=== PATIENT | female | born 1955 | race Caucasian/White ===

== ENCOUNTER 2018-07-07 07:37 | Outpatient (CLI) | payer BC, SELFPAY ==
[2018-07-07 07:47] VITALS: BP 122/58; PULSE 90; RESP 18; TEMP 36.1; O2SAT 96
--- NOTE | 2018-07-07 08:39 | DI.RAD_ITS ---
SYMPTOM/DIAGNOSIS: LUMBAR SPONDYLOSIS C-ARM: Fluoroscopy Time: 34.6 sec 20.77 mGy Fluoroscopy was utilized by Dr. Atkins during lumbar spine injection. Please refer to the procedure report for complete details.
--- NOTE | 2018-07-07 08:48 | PDOC.PAIN ---
Pain Clinic Procedure Note Current Active Problems Problem Status Onset Spondylosis of lumbar region without myelopathy or radiculopathy Acute Lumbar/Sacral Medial Branch Blocks NALINI GARCIA has been referred [facility] the [facility] for lumbar/sacral medial branch blocks. COMMENTS: She was previously evaluated by Ms. Maravilla in our clinic. Remote allergy to Novacaine. Patient was interviewed and the medical record reviewed. There were no medical, pharmacologic, radiographic or other structural contraindications to attempting fluoroscopically guided local anesthetic lumbar/sacral medial branch blocks. Risks and expected side effects as well as potential benefit of the procedure were reviewed and voiced concerns addressed. The printed consent form was signed and witnessed. Standard time-out procedure was performed. Patient was placed in the prone position on the fluoroscopy table and automated blood pressure cuff and pulse oximeter applied. The skin entry points for approaching the anatomic target points of the segmental medial branches of Right L3-L5DR were identified with fluoroscopy and marked. Following thorough Chlorhexadine preparation of the skin and draping and 1% lidocaine infiltration of the skin entry points and subcutaneous tissues, a 25 gauge 3.5 spinal needle was placed under fluoroscopic guidance down on to the target point for each respective segmental medial branch.Position was confirmed in A/P, oblique and lateral views with 0.25ml of omnipaque 240. Then 0.5ml of 0.5% Ropivacaine was injected at each segmental level. The needles were removed without difficulty. Vital signs were stable throughout the procedure and were as recorded in the docflowsheet by the nursing staff. Follow up plans and appointments were discussed and was instructed to keep careful note of how the usual pain was modified by these injections. Specifically was asked to keep a pain diary for the next 24 hours using a numeric pain scale of 0-10 and report these results at the follow-up visit. Post procedure instruction was given as documented in the nursing documentation and having met discharge criteria. Patient was discharged from the [facility]. Based on the medial branches blocked today, if the patient has adequate relief and we are able to proceed to radiofrequency ablation, the treatment should result in the denervation of the right L4-L5 and L5-S1 FACET JOINTS. We would expect to denervate a total of 2 facets during the radiofrequency ablation. COMMENTS:She will call back with her 1-4 hour post procedure pain scores to the right low back. CC: Charlene Barton
[2018-07-07] MEDS: Omnipaque 240 MG/ML 50 ML BTL IJ (08:50)
[2018-07-07 08:51] VITALS: BP 139/85; PULSE 88; RESP 19; O2SAT 95
--- NOTE | 2018-07-07 08:54 | PDOC.PAIN_ITS ---
Pain Clinic Procedure Note Current Active Problems Problem Status Onset Spondylosis of lumbar region without myelopathy or radiculopathy Acute Lumbar/Sacral Medial Branch Blocks NALINI GARCIA has been referred [facility] the [facility] for lumbar/ sacral medial branch blocks. COMMENTS: She was previously evaluated by Ms. Maravilla in our clinic. Remote allergy to Novacaine. Patient was interviewed and the medical record reviewed. There were no medical , pharmacologic, radiographic or other structural contraindications to attempting fluoroscopically guided local anesthetic lumbar/sacral medial branch blocks. Risks and expected side effects as well as potential benefit of the procedure were reviewed and voiced concerns addressed. The printed consent form was signed and witnessed. Standard time-out procedure was performed. Patient was placed in the prone position on the fluoroscopy table and automated blood pressure cuff and pulse oximeter applied. The skin entry points for approaching the anatomic target points of the segmental medial branches of Right L3-L5DR were identified with fluoroscopy and marked. Following thorough Chlorhexadine preparation of the skin and draping and 1% lidocaine infiltration of the skin entry points and subcutaneous tissues, a 25 gauge 3.5 spinal needle was placed under fluoroscopic guidance down on to the target point for each respective segmental medial branch.Position was confirmed in A/P, oblique and lateral views with 0.25ml of omnipaque 240. Then 0.5ml of 0.5% Ropivacaine was injected at each segmental level. The needles were removed without difficulty. Vital signs were stable throughout the procedure and were as recorded in the docflowsheet by the nursing staff. Follow up plans and appointments were discussed and was instructed to keep careful note of how the usual pain was modified by these injections. Specifically was asked to keep a pain diary for the next 24 hours using a numeric pain scale of 0-10 and report these results at the follow-up visit. Post procedure instruction was given as documented in the nursing documentation and having met discharge criteria. Patient was discharged from the [facility]. Based on the medial branches blocked today, if the patient has adequate relief and we are able to proceed to radiofrequency ablation, the treatment should result in the denervation of the right L4-L5 and L5-S1 FACET JOINTS. We would expect to denervate a total of 2 facets during the radiofrequency ablation. COMMENTS:She will call back with her 1-4 hour post procedure pain scores to the right low back. CC: Charlene Barton
== END 2018-07-07 07:57 ==
PROVIDERS: Visit Provider Preventive Medicine Occupational Medicine
DX: M47.816 Spondylosis without myelopathy or radiculopathy, lumbar region (principal)
CPT/HCPCS: 64493; 64494; 72100; Q9967

== ENCOUNTER 2018-08-16 00:40 | Outpatient (CLI) | payer BC, SELFPAY ==
--- NOTE | 2018-08-16 14:31 | DI.RAD_ITS ---
SYMPTOM/DIAGNOSIS: PRE MRI CLEARANCE, H/O WELDING, LOW BACK PAIN, M54.5 ORBITS: Frontal and lateral views were obtained. No radiopaque foreign bodies are seen in the orbits.
--- NOTE | 2018-08-16 15:25 | DI.MRI_ITS ---
SYMPTOMS/DIAGNOSIS: RIGHT-SIDED LOW BACK PAIN FOR YEARS, POSTERIOR RIGHT LEG/ HIP PAIN MRI OF THE LUMBAR SPINE: Routine noncontrast examination was performed. There are no priors for comparison. The conus medullaris has a normal appearance and location. At L5-S1, there is no focal disc herniation or central spinal canal stenosis. There are mild degenerative changes of the facets. There is a small right lateral disc bulge causing mild narrowing of the right neural foramen, but no compression of the exiting nerve root. At L4-L5, there is a diffuse disc bulge. There is disc desiccation. Endplate degenerative signal changes and osteophytes are also present. There are degenerative changes of the facets with mild hypertrophy of the ligamentum flavum. The findings do result in mild narrowing of the central spinal canal. There is mild narrowing of the right neural foramen, but no nerve root compression is seen. There is moderate narrowing of the left neural foramen with mild flattening of the exiting nerve root. At L3-L4, there is disc desiccation. Endplate degenerative changes and osteophytes are seen. There is a diffuse disc bulge. There is a left lateral disc herniation, which causes marked left neural foraminal stenosis compressing the exiting nerve root. There is mild narrowing of the right neural foramen, but no compression of the exiting nerve root is seen. Mild narrowing of the central spinal canal is noted. At L2-L3, there is a diffuse disc bulge and degenerative disc disease. Endplate osteophytes and mild endplate degenerative signal changes are seen. No central spinal canal stenosis is seen. No significant neural foraminal stenosis is present. At L1-L2, there is no focal disc herniation, central spinal canal or neural foraminal stenosis. There are endplate degenerative signal changes and endplate osteophytes noted. There is a fatty rest or hemangioma in the L3 vertebral body. IMPRESSION: 1. Multilevel degenerative changes in the lumbar spine resulting in central spinal canal neural foraminal stenosis. 2. Left lateral disc herniation at L3-L4 causing marked narrowing of the left neural foramen with compression of the exiting nerve root. Please see the above discussion for complete details.
== END 2018-08-16 01:00 ==
PROVIDERS: Visit Provider Nurse Practitioner Family
DX: M54.5 Low back pain (principal); M51.26 Other intervertebral disc displacement, lumbar region; M41.26 Other idiopathic scoliosis, lumbar region; M51.16 Intervertebral disc disorders with radiculopathy, lumbar region
CPT/HCPCS: 70030; 70200; 72148

== ENCOUNTER 2018-08-22 09:11 | Day surgery (SDC) | payer BC, SELFPAY ==
--- NOTE | 2018-08-22 06:29 | W.COLOREPORT ---
Date of service: 08/22/18 Time of Service: 10:08 Colonoscopy Report Date of procedure: 08/22/18 Pre-op diagnosis general: Colon Cancer screening Post-op diagnosis procedure note: other (sigmoid polyp) Procedure: Colonoscopy with polypectomy with cold forceps Surgeon: Starla Xie Anesthesia proc note operative: MAC (Darnell Frey CRNA/ ASA 2) Estimated blood loss (mL): 3 Pathology: other (sigmoid polyp) Complications: None Disposition: same day Indications: Mrs. Jai Mcallister is a pleasant 62-year-old female who was seen in the office to discuss a colonoscopy. Her last colonoscopy was in 2007 and was normal. Risks, benefits and complications were reviewed with her and she wished to proceed. No guarantees were given or implied. Prep: Miralax/Dulcolax Procedure Start Time: 10:08 Procedure End Time: 10:36 Retraction Time: 19 minutes Findings: 1 small pedunculated polyp in the sigmoid colon at 17 cm Procedure Description: After informed consent was obtained the patient was taken to the procedure room and placed in a left decubitous position. Monitors were applied and a time out was done. The patients name, date of , procedure, allergies to medications and metal in their body was reviewed. The patient was then sedated. Once sedated and comfortable a rectal exam was done. External exam was normal. Internal exam revealed a normal sphincter tone and no palpable masses. The scope was then introduced and retroflexed. No internal hemorrhoids were identified. The scope was then advanced to the cecum without difficulty. The TI and appendiceal orifice were identified. The prep was marginal. The scope was then slowly retracted over 19 minutes back into the rectum. A pedunculated polyp was removed at about 17 cm in the sigmoid colon with cold forceps. The scope was removed and the patient was woken up and taken back to Same day surgery in stable condition. The patient tolerated the procedure well and there were no immediate complications. Follow up: The patient should follow up in 3-5 years unless they develop changes in bowel habits or other new gastrointestinal complaints.
--- NOTE | 2018-08-22 06:32 | W.PM.DSUDISC ---
Discharge Plan Disposition Patient Disposition: HOME Condition: Good Discharge Details Reason For Visit: SCREENING Attending Provider: Starla Xie Primary Care Provider: Charlene Barton Home Meds and New Rx's Prescriptions: Continue sertraline 50 mg tablet 50 mg PO DAILY Qty: 90 RF: 3 amitriptyline 10 mg tablet 10 mg PO HS Qty: 90 RF: 3 diclofenac sodium 75 mg tablet,delayed release (DR/EC) 75 mg PO BID PRN (Reason: back pain) 30 Days Qty: 60 RF: 2 multivitamin [One Daily] 1 EACH tablet 1 ea PO DAILY RF: 0 aspirin 325 MG tablet 325 mg PO DAILY RF: 0 acetaminophen [Tylenol Arthritis] 650 MG tablet extended release 650 mg PO DAILY PRNRF: 0 lancets [TellyoTouch Delica Lancets] 1 EACH misc 1 ea Intradermal BID RF: 4 blood sugar diagnostic [TellyoTouch Ultra Test] 1 EACH strip 3 strip Miscellaneous DAILY Qty: 300 RF: 1 metformin [Glucophage] 1,000 MG tablet 1,000 mg PO BID Qty: 180 RF: 4 hydrochlorothiazide 12.5 MG tablet 12.5 mg PO DAILY Qty: 90 RF: 4 pen needle, diabetic [Pen Needle] 1 EACH needle 1 ea Miscellaneous TID Qty: 300 RF: 4 lisinopril 40 MG tablet 1 tab PO DAILY Qty: 90 RF: 4 lorazepam [Ativan] 0.5 MG tablet 0.5 mg PO DAILY PRNQty: 20 RF: 0 hydroxyzine HCl 25 MG tablet 25 mg PO QID PRNQty: 60 RF: 0 insulin lispro [Humalog KwikPen Insulin] 100 UNIT/1 ML insulin pen 12 - 20 u SQ AC Qty: 3 RF: 3 simvastatin 40 MG tablet 40 mg PO DAILY Qty: 90 RF: 4 levothyroxine 75 MCG tablet 75 mcg PO DAILY Qty: 90 RF: 4 gabapentin 600 mg tablet 600 mg PO QID 30 Days Qty: 120 RF: 5 sertraline 100 mg tablet 100 mg PO DAILY Qty: 90 RF: 3 insulin glargine [Lantus Solostar U-100 Insulin] 100 unit/mL (3 mL) insulin pen 60 unit subcut DAILY Qty: 9 RF: 6 methylphenidate HCl 36 mg tablet extended release 24hr 36 mg PO DAILY RF: 0 cannabidiol (CBD) extract 100 mg/mL Solution 1 drp RF: 0 Discontinued polyethylene glycol 3350 17 gram powder in packet 255 g PO DAILY Qty: 15 RF: 0 bisacodyl [Dulcolax (bisacodyl)] 5 mg tablet,delayed release (DR/EC) 5 mg PO ONCE Qty: 4 RF: 0 Discharge Instructions Instructions: Colonoscopy (DC), Colorectal Polyps (DC) Additional Instructions: Findings: 1. One polyp Follow up: 3-5 years Please call if you develop: fevers >101.5 Nausea or Vomiting Abdominal pain that is not transient 1. Because there will be medication in your system for the next 24 hours, you may feel a little sleepy. Your coordination will be affected. Therefore: a. Do not drive or operate dangerous equipment for 24 hours. b. Do not drink alcohol beverages for 24 hours (not even beer). c. Plan to go home and rest for the day. 2. Generally there are no restrictions on your activity after a day or so has gone by, but you may feel a bit fatigued for a few days. 3 After you arrive home you may have a light meal and return to a normal diet as you can tolerate it without feeling sick to your stomach. 4. After surgery, you may feel pain or discomfort. This should be only transient, but if it persists please contact your doctor. 5. If there are any questions regarding the findings of your procedure, please feel free to contact your doctor. 6. If you are unable to contact your doctor with a problem, contact the hospital at [phone]. 7. Continue all your regular medications unless directed otherwise. I understand the above instructions and have no questions. Signature of Patient or Responsible Adult Escort Date/Time Name of Responsible Adult Escort Signature of Nurse Date/Time Activity:: Activity as Tolerated Diet:: As Tolerated Discharge Orders Discharge Orders: Discharge Order (Routine); Ordered 08/22/18 Ordered By: Starla Xie DS: Diagnosis Discharge Diagnosis (1) S/P colonoscopy: Status: Acute (2) Colorectal polyp detected on colonoscopy: Status: Acute
[2018-08-22 09:32] VITALS: BP 129/68; PULSE 89; RESP 18; TEMP 36.6; O2SAT 95
[2018-08-22] MEDS: Lactated Ringers 1,000 ML 80 ML IV (09:49)
--- NOTE | 2018-08-22 10:35 | BOWEL_PTH ---
PATIENT: Rajani Mendes LOC: [facility] U#:[id number] AGE/SX: 62/F ROOM: RE08/22/[address]: Starla Xie MD : [id number] BED: DIS: 08/22/2018 SPEC #: [id number] RECD: 08/22/18 12:59 STATUS: SATISH REQ #: [id number] ZAC: 08/22/18 10:[address]: Starla Xie DEPT: Surgical Specimen RECD BY: Haydee Majano ENTERED: 08/22/18 12:59 SP TYPE: Bowel OTHR DR: Charlene Barton APRN Tissues: 1 - BIOPSY BOWEL Procedures: GROSS AND MICRO LEVEL 4 IMMUNOPEROXIDASE STAIN Comments: [id number]
[2018-08-22 11:18] VITALS: BP 132/69; PULSE 72; RESP 18; TEMP 36.5; O2SAT 97
== END 2018-08-22 11:35 | disposition home or self-care (01) ==
LOC: SUR 09:13
PROVIDERS: Visit Provider Surgery
PROC: 0DJD8ZZ Inspection of Lower Intestinal Tract, Via Natural or Artificial Opening Endoscopic (ICD-10-PCS; CPT 45378; principal; 2018-08-22 10:45)
DX: Z12.11 Encounter for screening for malignant neoplasm of colon (principal); K63.5 Polyp of colon; E11.9 Type 2 diabetes mellitus without complications; Z79.4 Long term (current) use of insulin; I10 Essential (primary) hypertension
CPT/HCPCS: 45380; 88305; 88361

== ENCOUNTER 2018-11-11 07:50 | Outpatient (CLI) | payer BC, SELFPAY ==
--- NOTE | 2018-11-11 10:36 | HPE_ITS ---
Date of service: 11/11/18 Time of Service: 09:00 Assessment and Plan (1) Left carpal tunnel syndrome: Current visit: Yes Status: Acute Chronic carpal tunnel syndrome not being successfully controlled with cons ervative bracing at this time with daytime symptoms with object dropping. The anatomy, operative procedure are reviewed with Roro. all questions are answered. Endoscopic carpal tunnel release will be performed on 11/16/2018 anatomy permitting.Roro will receive penicillin as a preop antibiotic as her adverse reaction 30 years ago was this rash with joint swelling and I do not think that precludes the use of Ancef since there is such a low crossover reactivity even if her symptoms previously were an allergic reaction verses an adverse reaction. With respect to her Novocain sensitivity, I wonder if the intense itchy rash was a result of topical sensitivity to the antiseptic agent. To help prove that fact it would be interesting to do a small patch test on another extremity and see if she develops intense overlying that small patch of antiseptic agent. 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 She does a lot of typing with her work activities and this exacerbates the numbness. She feels her hand is numb 90% of the time with some involvement of her index finger mostly sparing her ring and little. She is status post a successful right E CTR done in so is well aware of carpal tunnel syndrome symptoms in hopes for similar excellent results. Pertinent Surgical Information Denies previous medical history of: stroke, TIA, NV, use of sublingual nitroglycerin, GERD, seizures, , sleep apnea, , hepatitis, hematologic disorders Denies previous complications from surgery or anesthesic agents with respect to high fever, prolonged vomiting and difficulty waking up Review of Systems Review of Systems All systems reviewed & are unremarkable except as noted in HPI and below Constitutional Denies fever(s) and Denies headache(s) ENT Denies headache(s), Denies nasal congestion, Denies nasal discharge and Denies sore throat Cardiovascular Denies chest pain, Denies chest pain with activity, Denies palpitations, Denies dyspnea on exertion, Denies orthopnea and Denies paroxysmal nocturnal dyspnea Respiratory Denies cough, Denies excessive phlegm production, Denies pain on inspiration, Denies dyspnea on exertion and Denies wheezing Gastrointestinal Denies abdominal pain, Denies melena, Denies hematochezia, Denies nausea and Denies vomiting Genitourinary Denies hematuria, Denies urinary frequency and Denies dysuria Comments: Denies burning sensation with urination Musculoskeletal Reports as per HPI Neurologic Denies headache(s) Psychiatric Denies anxiety and Denies depression Endocrine Denies palpitations Comments: Denies any unplanned weight changes Allergic/Immunologic Denies wheezing PFSH Medical History Left carpal tunnel syndrome (Acute) Colorectal polyp detected on colonoscopy (Acute ~08/22/18) Increased BMI (Chronic) Hypothyroidism (Chronic) Headache (Acute 09/13/12) Urinary, incontinence, stress female (Chronic 03/30/13) Fatty liver (Chronic 03/30/13) Essential hypertension (Acute 06/28/13) Diabetes mellitus (Chronic 09/13/12) Depression (Chronic 07/29/17) Chronic bilateral low back pain without sciatica (Chronic 05/31/17) Attention deficit hyperactivity disorder (Chronic) Anxiety (Chronic 03/30/13) Acute low back pain (Acute 07/24/17) Spondylosis of lumbar region without myelopathy or radiculopathy (Acute) Anxiety (Chronic) Depression (Chronic) Diabetes mellitus (Chronic) Essential hypertension (Chronic) Hypothyroidism (Chronic) Urinary, incontinence, stress female (Chronic) Fatty liver (Inactive) ADHD Acute low back pain Chronic bilateral low back pain without sciatica Headache Hyperlipidemia Surgical History S/P colonoscopy (Acute ~08/22/18) Appendectomy (Resolved) BONE SPUR (Resolved ~01/2014) Open Carpal Tunnel release (Resolved 05/27/16) Cholecystectomy (Inactive) Social History household members: spouse housing: house number of children: 3 current occupational status: employed 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 current occupational exposures/hazards: No Smoking and Tabacco status: Former Tobacco Use how long ago did patient quit smokin-40 yrs ago alcohol intake: current alcohol intake frequency: holidays/special occasions only details: episodic beer socially substance use type: does not use What is your relationship status?: Panel score (0-1 are the most socially isolated patients): 1 Meds Home Medications Medication Instructions Recorded Confirmed Type aspirin 325 mg PO DAILY tab 12/21/12 11/11/18 History lancets [OneTouch Delica Lancets] 12/21/12 11/03/18 History multivitamin [One Daily] 1 ea PO DAILY 12/21/12 11/11/18 History OneTouch Ultra Test #300 strip 07/31/16 11/03/18 History hydrochlorothiazide 12.5 mg PO DAILY #90 tab-cap 09/17/17 11/11/18 Rx lisinopril 1 tab PO DAILY #90 tab-cap 11/08/17 11/11/18 Rx Humalog KwikPen Insulin 12 - 20 u SQ AC #3 box 02/04/18 11/11/18 Rx levothyroxine 75 mcg PO DAILY #90 tab-cap 03/07/18 11/11/18 Rx simvastatin 40 mg PO DAILY #90 tab-cap 03/07/18 11/11/18 Rx sertraline 100 mg tablet 100 mg PO DAILY #90 tab-cap 07/04/18 11/11/18 Rx amitriptyline 10 mg tablet 10 mg PO HS #90 tab-cap 07/27/18 11/11/18 Rx sertraline 50 mg tablet 50 mg PO DAILY #90 tab 07/27/18 11/03/18 Rx insulin glargine (U-100) 100 60 unit SUBCUT DAILY #9 pen 08/10/18 11/11/18 Rx unit/mL (3 mL) subcutaneous pen cannabidiol (CBD) extract 1 drp PO PRN PRN 08/22/18 11/11/18 History metformin 1,000 mg tablet 1,000 mg PO BID #180 tab 09/14/18 11/11/18 Rx gabapentin 600 mg tablet 600 mg PO QID tab 10/18/18 11/11/18 History methylphenidate ER 36 mg 36 mg PO DAILY #30 tab MDD 36mg 10/18/18 11/11/18 Rx tablet,extended release 24 hr pen needle, diabetic 31 gauge x #300 box 11/09/18 Rx 5/16 diclofenac sodium 75 mg PO BID 11/11/18 11/11/18 History Allergies Allergy/AdvReac Type Severity Reaction Status Date / Time Penicillins Allergy RASH; Verified 11/11/18 10:57 JOINT SWELLING Sulfa (Sulfonamide Allergy JOINT Verified 11/11/18 08:15 Antibiotics) SWELLING; RASH procaine [From Novocain] AdvReac Severe ? Verified 11/11/18 10:57 manifestation of topical antiseptic exposure citalopram AdvReac Mild total Verified 11/11/18 08:15 meltdown Exam Const General: cooperative HENMT Throat: posterior oropharynx normal Eyes General: appearance normal, both eyes and all related structures Conjunctivae: conjunctivae normal Sclera: sclerae normal Neck Neck: no JVD Carotids: normal carotid upstroke and no bruits Resp Effort & Inspection: normal respiratory effort and able to speak in complete sentences Auscultation: clear to auscultation bilaterally, no rales, no rhonchi and no wheezes Cardio Rate: regular rate Heart Sounds: S1 normal, S2 normal and no murmurs Bruits: no abdominal aortic bruits Pulses: normal peripheral pulses Other: No pulsatile mass noted with palpation over the abdominal aorta.no organomegly or tenderness.no cva tenderness GI Palpation: soft and no hepatosplenomegaly Auscultation: normal bowel sounds General: No CVA tenderness Extrem General: no pedal edema Other: no thenar atrophy.+ rapid tinels, median nerve compression and phalens testing
== END 2018-11-11 08:10 ==
PROVIDERS: Visit Provider Orthopaedic Surgery
DX: G56.02 Carpal tunnel syndrome, left upper limb (principal); Z01.818 Encounter for other preprocedural examination

== ENCOUNTER 2018-11-16 11:27 | Day surgery (SDC) | payer BC, SELFPAY ==
[2018-11-16 11:30] VITALS: BP 124/65; PULSE 91; RESP 16; TEMP 37; O2SAT 96
[2018-11-16] MEDS: Lactated Ringers 1,000 ML 80 ML IV (12:05)
--- NOTE | 2018-11-16 13:36 | W.PM.DSUDISC ---
Discharge Plan Disposition Patient Disposition: HOME Condition: Good Discharge Details Reason For Visit: L ECTR Attending Provider: Chauncye Núñez Primary Care Provider: Charlene Barton Home Meds and New Rx's Prescriptions: New hydrocodone-acetaminophen 5-325 mg tablet 1 tab PO Q6H PRN (Reason: pain) Qty: 7 RF: 0 Continued sertraline 50 mg tablet 50 mg PO DAILY Qty: 90 RF: 3 amitriptyline 10 mg tablet 10 mg PO HS Qty: 90 RF: 3 methylphenidate HCl 36 mg tablet extended release 24hr 36 mg PO DAILY MDD 36mg Qty: 30 RF: 0 multivitamin [One Daily] 1 EACH tablet 1 ea PO DAILY RF: 0 aspirin 325 MG tablet 325 mg PO DAILY RF: 0 lancets [OneTouch Delica Lancets] 1 EACH misc 1 ea Intradermal BID RF: 4 OneTouch Ultra Test 1 EACH strip 3 strip Miscellaneous DAILY Qty: 300 RF: 1 hydrochlorothiazide 12.5 MG tablet 12.5 mg PO DAILY Qty: 90 RF: 4 lisinopril 40 MG tablet 1 tab PO DAILY Qty: 90 RF: 4 Humalog KwikPen Insulin 100 UNIT/1 ML insulin pen 12 - 20 u SQ AC Qty: 3 RF: 3 simvastatin 40 MG tablet 40 mg PO DAILY Qty: 90 RF: 4 levothyroxine 75 MCG tablet 75 mcg PO DAILY Qty: 90 RF: 4 sertraline 100 mg tablet 100 mg PO DAILY Qty: 90 RF: 3 Lantus Solostar U-100 Insulin 100 unit/mL (3 mL) insulin pen 60 unit subcut DAILY Qty: 9 RF: 6 metformin [Glucophage] 1,000 mg tablet 1,000 mg PO BID Qty: 180 RF: 4 pen needle, diabetic [Pen Needle] 31 gauge x 5/16 needle 1 ea Miscellaneous TID Qty: 300 RF: 4 diclofenac sodium 75 mg tablet,delayed release (DR/EC) 75 mg PO BID PRN (Reason: pain) 30 Days Qty: 60 RF: 5 gabapentin 600 mg tablet 600 mg PO QID 30 Days Qty: 120 RF: 5 cannabidiol (CBD) extract 100 mg/mL Solution 1 drp PO PRN PRNRF: 0 Discharge Instructions Additional Instructions: Elevate L hand above heart level as much as possible overnite tonite. Wiggle fingers L hand 10 times/hour when awake to prevent swelling and decrease pain. Keep dressings and splint dry and intact for 48 hours. After 48 hours, remove splint and dressings and begin to move L wrist. May shower or bathe and get incision wet after you remove dressings in 48 hours. Leave incision uncovered when it is dry and sealed. Use L hand as much as discomfort allows. Follow up with in 7-10 days. Referrals: Chauncey Núñez MD [ [facility] STAFF PHYSICIAN] - (f/u in 7-10 days.) Equipment/Supplies: Splint Activity:: Activity as Tolerated Remove Dressings/Wound Care:: 48 hours Shower/Bathe:: 48 hours Diet:: As Tolerated Discharge Orders Discharge Orders: Discharge Order (Routine); Ordered 11/16/18 Ordered By: Chauncey Núñez DS: Diagnosis Discharge Diagnosis (1) Left carpal tunnel syndrome: Status: Acute
[2018-11-16 13:39] VITALS: BP 158/65; PULSE 88; RESP 14; TEMP 36.3; O2SAT 95
[2018-11-16 13:44] VITALS: BP 150/54; PULSE 88; RESP 14; TEMP 36.3; O2SAT 95
[2018-11-16 13:49] VITALS: BP 151/50; PULSE 89; RESP 14; TEMP 36.3; O2SAT 96
[2018-11-16 14:04] VITALS: BP 151/52; PULSE 88; RESP 13; TEMP 36.3; O2SAT 97
[2018-11-16 14:45] VITALS: BP 137/71; PULSE 90; RESP 14; TEMP 36.1; O2SAT 95
--- NOTE | 2018-11-16 16:51 | ROE_ITS ---
DATE OF PROCEDURE: November 16, 2018 PREOPERATIVE DIAGNOSIS: Carpal tunnel syndrome, left. POSTOPERATIVE DIAGNOSIS: Carpal tunnel syndrome, left. PROCEDURE: Endoscopic carpal tunnel release, left. SURGEON: Chauncey Núñez M.D. ANESTHESIA: General, Juwan Alas CRNA INDICATIONS: This is a 63-year-old white female with longstanding bilateral carpal tunnel syndrome. She has had an endoscopic carpal tunnel release on the right a couple of years ago with excellent re lief of symptoms. Her left carpal tunnel has gotten worse over the last several months. She has dif ficulty sleeping and it is quite painful. Endoscopic carpal tunnel release was recommended to allevi ate her symptoms. The risks and complications of the procedure were explained to the patient in deta il preoperatively. PROCEDURE: The patient was taken to the Operating Room on 11/16/18. She was placed supine on the tab le and a general anesthetic was administered. A proximal tourniquet was applied to the left upper ar m and the left hand, wrist, and forearm were prepped and draped free in the usual sterile fashion. T he arm was exsanguinated by elevation for two minutes and then the tourniquet was inflated to 325 mmH g. A transverse incision was made in line with the proximal flexion crease of her left wrist, beginning at the flexor carpi radialis tendon and extending to the flexor carpi ulnaris tendon. The incision w as carried to the fascia and subcutaneous veins were cauterized. A distally-based fascial flap was t hen created to gain access to the carpal canal. Room for the endoscope was made with the synovial re flector followed by a series of obturators in the carpal canal. Because the carpal canal was quite t ight I had to use the synovial reflector and the obturators several times before I had enough room to place the endoscope in the carpal canal. The endoscope was then placed in the carpal canal and was advanced until I could clearly visualize th e distal edge of the volar carpal ligament. At this point the trigger was depressed, elevating the b lade and the blade was then drawn out from the distal edge of the volar carpal ligament, out through the incision, transecting the volar carpal ligament. The blade was depressed. The endoscope was alfredo edis back in the canal and I was able to visualize the median nerve falling into the defect that was c reated by transecting the volar carpal ligament. The wound was infiltrated with 0.5% Marcaine with epinephrine solution and a median nerve block was p erformed with 0.5% Marcaine with epinephrine solution. The tourniquet was released and hemostasis wa s obtained with electrocautery and simple direct pressure. The skin edges were approximated with two horizontal mattress sutures of #4-0 nylon suture material. The wound was dressed with Xeroform gauz e, sterile gauze 4x4s, wrapped with a Kerlix bandage, and then wrapped with a 3-inch Natanael bandage. Th e patient's left wrist was placed in a commercial cock-up wrist splint. The patient's general anesthesia was reversed without complication. She was discharged to the [facility] Room in good condition. The patient was discharged home from the Day Surgery Unit when fully recovered from her general anest hesia. She was given instructions to elevate her left hand above heart level as much as possible ove cooper tonight. She is encouraged to wiggle her fingers 10 times an hour when awake to prevent swell ing and pain. She is given a prescription for pain of hydrocodone/APAP 5 mg/325 mg, 1 tablet every 6 hours as needed for pain not relieved by Tylenol or ibuprofen. She is to keep her dressings and spl int intact and dry for 48 hours. After 48 hours she will remove her splint and dressings and start t o move her left wrist. She may then shower or bathe and get her incision wet. She can leave the inc ision uncovered when it is dry and sealed. She should follow up in Dr. Núñez's office in 7 to 10 da ys.
== END 2018-11-16 15:31 | disposition home or self-care (01) ==
PROVIDERS: Visit Provider Orthopaedic Surgery
PROC: 01N54ZZ Release Median Nerve, Percutaneous Endoscopic Approach (ICD-10-PCS; CPT 29848; principal; 2018-11-16 13:00)
DX: G56.02 Carpal tunnel syndrome, left upper limb (principal)
CPT/HCPCS: 29848; J0690; J1100; J1885; J2405; J3010; L3908

== ENCOUNTER 2019-02-08 06:49 | Outpatient (CLI) | payer BC, SELFPAY ==
[2019-02-08 09:53] LABS: Hemoglobin A1C 6.8 % (4.5-6.2)
[2019-02-08 10:56] LABS: TSH (W/Ref FT4) 3.73 uIU/mL (0.358-3.74)
== END 2019-02-08 07:09 ==
DX: E03.9 Hypothyroidism, unspecified (principal); E11.610 Type 2 diabetes mellitus with diabetic neuropathic arthropathy; G47.00 Insomnia, unspecified; R63.8 Other symptoms and signs concerning food and fluid intake; Z79.4 Long term (current) use of insulin
CPT/HCPCS: 36415; 83036; 84443

== ENCOUNTER 2019-06-22 09:14 | Outpatient (CLI) | payer BC, SELFPAY ==
[2019-06-22 10:46] LABS: Ferritin 45 ng/mL (8-388)
== END 2019-06-22 09:34 ==
PROVIDERS: Visit Provider Nurse Practitioner
DX: M25.50 Pain in unspecified joint (principal)
CPT/HCPCS: 36415; 82728

== ENCOUNTER 2019-07-25 01:26 | Outpatient (CLI) | payer BC, SELFPAY ==
--- NOTE | 2019-07-25 08:00 | DI.MAMMO_ITS ---
EXAM: MG MAMMO SCREENING CLINICAL HISTORY: SCREENING, Z12.31 TECHNIQUE: Mammograms were interpreted according to the usual protocol including computer analysis w [employer] CAD system, tomosynthesis and C-view imaging. COMPARISON: [id number] FINDINGS: The breasts are composed of fatty density tissue, breast density category A. There are no suspicious masses or suspicious microcalcifications. There has been no significant change when compared with pr ior images. IMPRESSION: Category 1, negative mammogram. Routine yearly screening is recommended. BI-RADS Cat 1 - Negative Breast Density - Category A - Almost entirely fatty
== END 2019-07-25 01:46 ==
DX: Z12.31 Encounter for screening mammogram for malignant neoplasm of breast (principal)
CPT/HCPCS: 77063; 77067

== ENCOUNTER 2019-10-19 13:23 | Outpatient (CLI) | payer BC, SELFPAY ==
[2019-10-19 14:14] LABS: Hemoglobin A1C 6.7 % (3.8-5.6)
[2019-10-19 15:09] LABS: Calculated LDL 115 mg/dL; Cholesterol 202 mg/dL (<200); Ferritin 57 ng/mL (8-252); HDL Cholesterol 50 mg/dL (40-60); Triglyceride 186 mg/dL (<150)
== END 2019-10-19 13:43 ==
PROVIDERS: Visit Provider Nurse Practitioner
DX: E11.9 Type 2 diabetes mellitus without complications (principal); E61.1 Iron deficiency; E78.5 Hyperlipidemia, unspecified
CPT/HCPCS: 36415; 80061; 82728; 83036

== ENCOUNTER 2020-05-07 01:28 | Outpatient (CLI) | payer BC, SELFPAY ==
[2020-05-07 08:07] LABS: Hemoglobin A1C 6.3 % (3.8-5.6)
[2020-05-07 09:06] LABS: ALT 36 U/L (14-59); AST 27 U/L (15-37); Albumin 3.8 g/dL (3.4-5.0); Alkaline Phosphatase 49 U/L (46-116); BUN 20 mg/dL (7-18); Bilirubin, Total 0.3 mg/dL (0.2-1.0); Calcium 8.9 mg/dL (8.5-10.1); Calculated LDL 120 mg/dL (<100); Chloride 104 mmol/L (98-107); Cholesterol 221 mg/dL (<200); Glucose 147 mg/dL (74-106); HDL Cholesterol 53 mg/dL (40-60); Sodium 140 mmol/L (136-145); TSH (W/Ref FT4) 6.67 uIU/mL (0.36-3.74); Total Protein 6.6 g/dL (6.4-8.2); Triglyceride 244 mg/dL (<150)
== END 2020-05-07 01:48 ==
DX: E03.9 Hypothyroidism, unspecified (principal); E11.618 Type 2 diabetes mellitus with other diabetic arthropathy; E78.5 Hyperlipidemia, unspecified; F33.1 Major depressive disorder, recurrent, moderate; G47.00 Insomnia, unspecified; I10 Essential (primary) hypertension; R63.8 Other symptoms and signs concerning food and fluid intake
CPT/HCPCS: 36415; 80053; 80061; 83036; 84439; 84443

== ENCOUNTER 2020-07-30 01:16 | Outpatient (CLI) | payer BC, SELFPAY ==
--- NOTE | 2020-07-30 08:43 | DI.MAMMO_ITS ---
EXAM: MAMMO SCREENING CLINICAL HISTORY: screening,Z12.39 TECHNIQUE: Mammograms were interpreted according to the usual protocol including computer analysis w [employer] CAD system, tomosynthesis and C-view imaging. COMPARISON: FINDINGS: The breasts are of moderate density with fairly symmetrical distribution of fibroglandular tissue. N o dominant mass or clumped microcalcification is identified in either breast. The current examinatio n is compared with previous examinations including July 2019 and there has been no gross interval change in appearance in comparison with the prior studies. IMPRESSION: No specific evidence of malignancy at this time. Routine screening examinations are suggested at ye millicent intervals in this age group according to the ACS ACR guidelines. BI-RADS Category 1 - Negative Breast Density - Category B - Scattered areas of fibroglandular density
== END 2020-07-30 01:36 ==
DX: Z12.31 Encounter for screening mammogram for malignant neoplasm of breast (principal)
CPT/HCPCS: 77063; 77067

== ENCOUNTER 2020-07-30 02:30 | Outpatient (CLI) | payer BC, SELFPAY ==
[2020-07-30 09:29] LABS: TSH (W/Ref FT4) 5.37 uIU/mL (0.36-3.74)
[2020-07-30 09:32] LABS: Ferritin 98 ng/mL (8-252)
== END 2020-07-30 02:50 ==
PROVIDERS: Visit Provider Nurse Practitioner
DX: E03.9 Hypothyroidism, unspecified (principal); G47.00 Insomnia, unspecified
CPT/HCPCS: 36415; 82728; 84439; 84443

== ENCOUNTER 2021-02-25 16:09 | Outpatient (REF) | payer BC, SELFPAY ==
[2021-03-01 03:23] LABS: 2-Hydroxy Ethyl Flurazepam Not Detected ng/mL (Cutoff: 10); 3,4-methylenedioxyamphetamine Not Detected ng/mL (Cutoff: 100); 3,4-methylenedioxyethylampheta Not Detected ng/mL (Cutoff: 100); 3,4-methylenedioxymethamphetam Not Detected ng/mL (Cutoff: 100); 6-monoacetylmorphine Not Detected ng/mL (Cutoff: 25); Alpha-Hydroxy Midazolam Not Detected ng/mL (Cutoff: 10); Alpha-Hydroxy Triazolam Not Detected ng/mL (Cutoff: 10); Alpha-Hydroxyalprazolam Not Detected ng/mL (Cutoff: 10); Alpha-OH-alprazolam Glucuronid Not Detected ng/mL (Cutoff: 50); Alprazolam Not Detected ng/mL (Cutoff: 10); Amphetamine Not Detected ng/mL (Cutoff: 100); Barbiturates Negative ng/mL (Cutoff: 200); Buprenorphine Not Detected ng/mL (Cutoff: 5); Chlordiazepoxide Not Detected ng/mL (Cutoff: 10); Clobazam Not Detected ng/mL (Cutoff: 10); Clonazepam Not Detected ng/mL (Cutoff: 10); Cocaine Negative ng/mL (Cutoff: 150); Codeine Not Detected ng/mL (Cutoff: 25); Comment Normal; Creatinine, U 191.9 mg/dL; Diazepam Not Detected ng/mL (Cutoff: 10); Dihydrocodeine Not Detected ng/mL (Cutoff: 25); EDDP Not Detected ng/mL (Cutoff: 25); Ephedrine Not Detected ng/mL (Cutoff: 100); Fentanyl Not Detected ng/mL (Cutoff: 2); Flurazepam Not Detected ng/mL (Cutoff: 10); Hydrocodone Not Detected ng/mL (Cutoff: 25); Hydromorphone Not Detected ng/mL (Cutoff: 25); Hydromorphone-3-beta-glucuroni Not Detected ng/mL (Cutoff: 100); Lorazepam Not Detected ng/mL (Cutoff: 10); Lorazepam Glucuronide Not Detected ng/mL (Cutoff: 50); Meperidine Not Detected ng/mL (Cutoff: 25); Methadone Not Detected ng/mL (Cutoff: 25); Methamphetamine Not Detected ng/mL (Cutoff: 100); Methylphenidate Not Detected ng/mL (Cutoff: 20); Midazolam Not Detected ng/mL (Cutoff: 10); Morphine Not Detected ng/mL (Cutoff: 25); N-Desmethylclobazam Not Detected ng/mL (Cutoff: 200); N-desmethyltapentadol Not Detected ng/mL (Cutoff: 50); Naloxone Not Detected ng/mL (Cutoff: 25); Norbuprenorphine Not Detected ng/mL (Cutoff: 5); Norfentanyl Not Detected ng/mL (Cutoff: 2); Norhydrocodone Not Detected ng/mL (Cutoff: 25); Normeperidine Not Detected ng/mL (Cutoff: 25); Noroxycodone Not Detected ng/mL (Cutoff: 25); Noroxymorphone Not Detected ng/mL (Cutoff: 25); O-desmethyltramadol Not Detected ng/mL (Cutoff: 25); Oxazepam Glucuronide Not Detected ng/mL (Cutoff: 50); Phencyclidine (PCP) Not Detected ng/mL (Cutoff: 20); Phentermine Not Detected ng/mL (Cutoff: 100); Prazepam Not Detected ng/mL (Cutoff: 10); Propoxyphene Not Detected ng/mL (Cutoff: 25); Pseudoephedrine Not Detected ng/mL (Cutoff: 100); Ritalinic Acid Not Detected ng/mL (Cutoff: 100); Specific Gravity 1.027; Tapentadol Not Detected ng/mL (Cutoff: 25); Temazepam Not Detected ng/mL (Cutoff: 10); Temazepam Glucuronide Not Detected ng/mL (Cutoff: 50); Tetrahydrocannabinol Presumptive Positive ng/mL (Cutoff: 50); Tramadol Not Detected ng/mL (Cutoff: 25); Triazolam Not Detected ng/mL (Cutoff: 10); Zolpidem Phenyl-4-Carboxy acid Not Detected ng/mL (Cutoff: 10); pH 5.3
[2021-03-04 08:46] LABS: Carboxy-THC Interpretation Positive.; Delta-9 CarboxyThc by LC-MS/MS 244 ng/mL (Cutoff:<3)
== END 2021-02-25 16:10 | disposition home or self-care (01) ==
LOC: LBN 16:09
PROVIDERS: Visit Provider Nurse Practitioner Family
DX: M54.5 Low back pain (principal); M25.561 Pain in right knee; Z79.899 Other long term (current) drug therapy
CPT/HCPCS: 80307; 80347; 80349; 80364

== ENCOUNTER 2021-05-20 12:03 | Outpatient (REF) | payer BC, SELFPAY ==
--- NOTE | 2021-05-20 10:00 | PAPFT_PTH ---
PATIENT: Rajani Mendes LOC: [facility] [place]#:[id number] AGE/SX: 65/F ROOM: RE05/20/[address]: Charlene Barton APRN : 1955 BED: DIS: 05/20/2021 SPEC #: [id number] RECD: 05/20/21 12:51 STATUS: SATISH REQ #: [id number] ZAC: 05/20/21 10:[address]: Charlene Barton DEPT: [facility] Cytology RECD BY: Haydee Majano Tissues: 1 - CX/ENDOCX FOR PAP SMEARS Procedures: PAP THIN PREP/UVM Screening HPV DNA PROBE Comments: [id number]
== END 2021-05-20 12:04 | disposition home or self-care (01) ==
LOC: LBN 12:03
DX: Z12.4 Encounter for screening for malignant neoplasm of cervix (principal); Z11.51 Encounter for screening for human papillomavirus (HPV)
CPT/HCPCS: 88142; 87624

== ENCOUNTER 2021-08-05 01:23 | Outpatient (CLI) | payer BC, SELFPAY ==
--- NOTE | 2021-08-05 07:30 | DI.MAMMO_ITS ---
Exam(s) MAMMO SCREENING EXAM: MAMMO SCREENING CLINICAL HISTORY: screening,Z12.39 TECHNIQUE: Mammograms were interpreted according to the usual protocol including computer analysis w [employer] CAD system, tomosynthesis and C-view imaging. COMPARISON: FINDINGS: The breasts are of moderate density with fairly symmetrical distribution of fibroglandular tissue. N o dominant mass or clumped microcalcification is identified in either breast. The current examinatio n is compared with previous examinations including July 2020 and there has been no gross interval change in appearance in comparison with the prior studies. IMPRESSION: No specific evidence of malignancy at this time. Routine screening examinations are suggested at yea rly intervals in this age group according to the ACS ACR guidelines. BI-RADS Category 1 - Negative Breast Density - Category B - Scattered areas of fibroglandular density
== END 2021-08-05 01:43 ==
DX: Z12.31 Encounter for screening mammogram for malignant neoplasm of breast (principal)
CPT/HCPCS: 77063; 77067

== ENCOUNTER 2021-08-05 13:55 | Outpatient (CLI) | payer BC, SELFPAY ==
[2021-08-05 14:39] LABS: ALT 46 U/L (14-59); AST 29 U/L (15-37); Alkaline Phosphatase 52 U/L (46-116); Anion Gap 11.9 mmol/L (3-11); BUN 21 mg/dL (7-18); Bilirubin, Total 0.4 mg/dL (0.2-1.0); CO2 26.1 mmol/L (21.0-32.0); CREATININE 0.9 mg/dL (0.55-1.02); Calcium 9.2 mg/dL (8.5-10.1); Calculated LDL 106 mg/dL (<100); Chloride 105 mmol/L (98-107); Cholesterol 202 mg/dL (<200); Ferritin 63 ng/mL (8-252); Glucose 119 mg/dL (74-106); HDL Cholesterol 62 mg/dL (40-60); Potassium 4.4 mmol/L (3.5-5.1); Sodium 143 mmol/L (136-145); TSH (W/Ref FT4) 5.26 uIU/mL (0.36-3.74); Total Protein 6.9 g/dL (6.4-8.2); Triglyceride 174 mg/dL (<150)
[2021-08-05 14:58] LABS: FREE T4 0.89 ng/dL (0.76-1.46)
== END 2021-08-05 13:56 | disposition home or self-care (01) ==
LOC: LBO 13:58
DX: E03.9 Hypothyroidism, unspecified; I10 Essential (primary) hypertension; G47.00 Insomnia, unspecified; E78.5 Hyperlipidemia, unspecified; R53.83 Other fatigue; K76.0 Fatty (change of) liver, not elsewhere classified; E11.69 Type 2 diabetes mellitus with other specified complication
CPT/HCPCS: 36415; 80053; 80061; 81003; 82043; 82570; 82728; 84439; 84443

== ENCOUNTER 2022-06-10 16:00 | Outpatient (REF) | payer MEDICARE, BC, SELFPAY ==
[2022-06-10 22:29] LABS: HCT 42.9 % (36.0-46.0); HGB 13.8 g/dL (11.2-15.7); MCH 28.3 pg (27.0-33.0); MCHC 32.2 % (32.0-36.0); MCV 88 fL (80-95); MPV 10.1 fL (8.0-11.0); Platelet Count 286 10^3/uL (130-400); RBC 4.88 10^6/uL (3.93-5.22); RDW 13.6 % (11.7-14.6); WBC 8.32 10^3/uL (4.4-10.8)
[2022-06-10 22:52] LABS: Ferritin 105 ng/mL (8-252); TSH (W/Ref FT4) 3.09 uIU/mL (0.36-3.74)
== END 2022-06-10 16:01 | disposition home or self-care (01) ==
LOC: NCHCN 16:00
PROVIDERS: Visit Provider Nurse Practitioner Family
DX: E03.9 Hypothyroidism, unspecified (principal); R53.83 Other fatigue; E11.9 Type 2 diabetes mellitus without complications
CPT/HCPCS: 85027; 82728; 84443

== ENCOUNTER → 2022-06-11 02:03 | Outpatient (CLI) | payer MEDICARE, BC, SELFPAY ==
--- NOTE | 2022-06-11 08:15 | DI.US_ITS ---
Exam(s) US RENAL EXAM: US RENAL CLINICAL HISTORY: feeling of incomplete empyting, pre-postvoid residual,family h/o bladder ca. TECHNIQUE: Brown scale, color and spectral Doppler were used. COMPARISON: No exams were available for comparison FINDINGS: Renal size in cm: Right: 11.2. Left: 12.6. Echogenicity: Normal. Hydronephrosis: No. Cyst or mass: No. Nephrolithiasis: No. Other findings: None. Bladder:Normal. Ureteral jets: Right: Not visualized on this examination. Left: Not visualized on this examination. Prevoid vol:30 cc Postvoid vol:0 cc Renal color flow: Symmetric and within normal limits. IMPRESSION: Unremarkable examination. DATA REPOSITORY:
== END ==
PROVIDERS: Visit Provider Nurse Practitioner Family
DX: R39.14 Feeling of incomplete bladder emptying (principal); Z80.52 Family history of malignant neoplasm of bladder
CPT/HCPCS: 76770

== ENCOUNTER 2023-01-07 03:35 | Outpatient (CLI) | payer MEDICARE, BC, SELFPAY ==
[2023-01-07 11:50] LABS: Hemoglobin A1C 6.5 % (<5.7)
[2023-01-07 12:35] LABS: ALT 39 U/L (14-59); AST 22 U/L (15-37); Albumin 3.8 g/dL (3.4-5.0); Alkaline Phosphatase 51 U/L (46-116); Anion Gap 11.7 mmol/L (3-11); BUN 27 mg/dL (7-18); Bilirubin, Total 0.5 mg/dL (0.2-1.0); CO2 25.3 mmol/L (21.0-32.0); CREATININE 1.2 mg/dL (0.55-1.02); Calcium 9.3 mg/dL (8.5-10.1); Chloride 105 mmol/L (98-107); Estimated GFR 49.92 (mL/min/1.73m2); Glucose 178 mg/dL (74-106); Sodium 142 mmol/L (136-145); Total Protein 7.2 g/dL (6.4-8.2)
== END 2023-01-07 03:36 | disposition home or self-care (01) ==
LOC: LBO 03:35
PROVIDERS: PCP Nurse Practitioner Family; Visit Provider Nurse Practitioner Family
DX: E11.65 Type 2 diabetes mellitus with hyperglycemia (principal); Z79.4 Long term (current) use of insulin
CPT/HCPCS: 36415; 80053; 83036

== ENCOUNTER 2023-02-19 01:24 | Outpatient (CLI) | payer MEDICARE, BC, SELFPAY ==
--- NOTE | 2023-02-19 08:45 | DI.MRI_ITS ---
Exam(s) MR LUMBAR SPINE WO EXAM: MR LUMBAR SPINE WO CLINICAL HISTORY: increased pain despite PT,SPONDYLOSIS,M47.816,M54.5,G89.29. TECHNIQUE: Multiplanar multisequence MRI of the Lumbar spine was performed. COMPARISON: MR MR lumbar spine wo from 08/16/2018 FINDINGS: Bones: The last intervertebral disc space is designated the L5/S1 level for the numbering purpose of this examination. The vertebral body heights are well maintained. Alignment is satisfactory. There are degenerative endplate signal changes. There again seen T1 and T2 hyperintense foci in T12 and L3 consistent with hemangiomas. Cord: The conus tip ends at the T12-L1 level. It is of normal size and signal intensity. T12-L1: No disc herniations or bulges are present. No central spinal canal or neural foraminal stenos is. L1-2: No disc herniations or bulges are present. No central spinal canal or neural foraminal stenosis . L2-3: There is a diffuse disc bulge. There is mild narrowing of the central spinal canal and right n eural foramen. No significant left neural foraminal stenosis. L3-4: There is a diffuse disc bulge. There are hypertrophic changes of the facets and ligamentum fla vum. There is moderate central spinal canal stenosis. The disc bulge is asymmetric to the left exte nding into left neural foramen causing moderate left neural foraminal stenosis. No significant right neural foraminal stenosis is seen. L4-5: There is a diffuse disc bulge. There are hypertrophic changes of the facets. These all contri bute to cause moderately severe central spinal canal stenosis. There is mild bilateral neural forami nal stenosis. L5-S1: No disc herniations or bulges are present. No central spinal canal or neural foraminal stenosi s. Soft tissues: The visualized SI joints and sacrum are well maintained. The paraspinal soft tissues ar e unremarkable. IMPRESSION: 1. Multilevel degenerative changes in the lumbar spine. 2. The degenerative changes are marked at L4-5 resulting in moderately severe central spinal canal st enosis and mild bilateral neural foraminal stenosis. 3. There is an asymmetric disc bulge to the left at L3-L4 causing left neural foraminal stenosis whic h is moderate. 4. Multilevel degenerative changes resulting in central spinal canal and neural foraminal stenosis as described above. DATA REPOSITORY:
== END 2023-02-19 01:44 ==
LOC: DI 01:24
PROVIDERS: PCP Nurse Practitioner Family; Visit Provider Nurse Practitioner Family
DX: G89.29 Other chronic pain (principal); M47.816 Spondylosis without myelopathy or radiculopathy, lumbar region
CPT/HCPCS: 72148

== ENCOUNTER → 2023-03-04 10:58 | Outpatient (BNVA) | payer MEDICARE, BC, SELFPAY | PROVIDERS: PCP Nurse Practitioner Family; Visit Provider Physical Therapy Assistant | DX: Z12.11 Encounter for screening for malignant neoplasm of colon (principal); Z86.010 Personal history of colon polyps ==

== ENCOUNTER 2023-03-22 09:06 | Day surgery (SDC) | payer MEDICARE, BC, SELFPAY ==
--- NOTE | 2023-03-21 18:47 | ANES.PREOP_ITS ---
General Info Date of Service Date Performed: 03/22/23 Height: 5 ft 3 in Weight: 110.223 kg Body Mass Index (BMI): 43.0 Surgical Procedure: Operation Date: 03/22/23 10:35 Proposed Procedure Side Surgeon rachel Paul MD Meds Allergies and Home Medications Allergies Allergy/AdvReac Type Severity Reaction Status Date / Time Penicillins Allergy RASH; Verified 03/22/23 09:28 JOINT SWELLING Sulfa (Sulfonamide Allergy JOINT Verified 03/22/23 09:28 Antibiotics) SWELLING; RASH procaine [From Novocain] AdvReac Severe ? Verified 03/22/23 09:28 manifestation of topical antiseptic exposure citalopram AdvReac Mild total Verified 03/22/23 09:28 meltdown Home Medication Medication Instructions Recorded aspirin 325 mg tablet 325 mg PO DAILY 12/21/12 lancets 33 gauge (OneTouch Delica 12/21/12 Lancets) multivitamin (One Daily tablet) 1 ea PO DAILY 12/21/12 blood sugar diagnostic #200 strips 06/28/20 nystatin 100,000 unit/gram topical 1 applic topical TID #60 grams 01/22/22 powder clotrimazole-betamethasone 1 1 applic topical BID 2 weeks #45 03/03/22 %-0.05 % topical cream grams flash glucose scanning reader #1 ea 06/10/22 ([employer] Katya 14 Day [place]) hydrochlorothiazide 12.5 mg tablet 12.5 mg PO DAILY #90 tab-caps 07/02/22 lisinopril 40 mg tablet 40 mg PO DAILY #90 tab-caps 07/02/22 simvastatin 40 mg tablet 40 mg PO DAILY #90 tab-caps 07/02/22 flash glucose sensor (FreeStyle #6 ea 08/01/22 Katya 14 Day Sensor kit) insulin lispro 100 unit/mL 12 - 20 unit (0.12 - 0.2 mL) 08/07/22 subcutaneous pen (Humalog KwikPen subcut AC #15 mL (U-100) Insulin) levothyroxine 88 mcg tablet 88 mcg PO DAILY #90 tab-caps 08/07/22 amitriptyline 10 mg tablet 5 - 10 mg PO HS #90 tab-caps 09/05/22 gabapentin 600 mg tablet 600 mg PO BID #180 tabs 09/05/22 diclofenac sodium 75 mg 75 mg PO BID pain #180 tabs 09/22/22 tablet,delayed release metformin 500 mg tablet 500 mg PO BID #180 tabs 10/09/22 insulin glargine 100 unit/mL (3 See Rx Instructions .Route 11/13/22 mL) subcutaneous pen (Lantus .COMPLEX #30 mL Solostar U-100 Insulin) pen needle, diabetic 31 gauge x ##300 12/21/22/ (Pen Needle) cyclobenzaprine 10 mg tablet 10 mg PO TID PRN muscle spasm #20 01/29/23 tabs magnesium chloride 64 mg 64 mg PO BID #180 tabs 01/29/23 (magnesium chloride) tablet,delayed release diclofenac sodium 1 % topical gel See Rx Instructions .Route 03/02/23 .COMPLEX #100 grams semaglutide 0.25 mg or 0.5 mg (2 0.25 mg (0.4 mL) subcut QWEEK 03/02/23 mg/3 mL) subcutaneous pen injector diabetes #3 mL (Ozempic) Current Visit Medications: Current Medications Generic Name Dose Route Start Last Admin Trade Name Freq PRN Reason Stop Dose Admin Ringer's Solution 1,000 mls @ 80 mls/hr 03/22/23 06:00 IV 04/18/23 23:59 INFUSION YONI IV Miscellaneous Supplies 1 each 03/22/23 06:00 Iv Access IV 04/18/23 23:59 DIRECTED YONI Sodium Chloride 0 ml 03/22/23 06:00 Normal Saline Flush 10 Ml Syr IV 04/18/23 23:59 PRN PRN Sodium Chloride 0 ml 03/22/23 06:00 Normal Saline 10 Ml Vial IJ 04/18/23 23:59 DIRECTED PRN Sterile Water 0 ml 03/22/23 06:00 Water,Injection,Sterile 10 Ml Vial IJ 04/18/23 23:59 DIRECTED PRN PFSH Active Problems Active Problems: Problem Status Onset Code Spondylosis of lumbar region without myelopathy or radiculopathy M47.816 Anxiety 03/30/13 F41.9 Attention deficit hyperactivity disorder F90.9 Chronic bilateral low back pain without sciatica 05/31/17 M54.5, G89.29 Depression 07/29/17 F32.9 Essential hypertension 06/28/13 I10 Fatty liver 03/30/13 K76.0 Urinary, incontinence, stress female 03/30/13 N39.3 Headache 09/13/12 R51 Hyperlipidemia 09/13/12 E78.5 Hypothyroidism E03.9 Increased BMI R63.8 Colorectal polyp detected on colonoscopy ~08/22/18 K63.5 OLIVE on CPAP G47.33, Z99.89 Diabetic foot E11.8 Fatigue R53.83 Otitis externa H60.90 Type 2 diabetes mellitus with hyperglycemia E11.65 Yeast dermatitis B37.2 Hamstring muscle strain S76.319A Feeling of incomplete bladder emptying R39.14 Family history of bladder cancer Z80.52 Medical History Medical History Acute low back pain (07/24/17) Hyperlipidemia RLS (restless legs syndrome) Surgical History Surgical History (Updated 03/22/23 @ 09:27 by Kalpana Patel RN) BONE SPUR (~01/2014) LEFT; Hx of appendectomy Hx of section Hx of cholecystectomy Left carpal tunnel syndrome Open Carpal Tunnel release (05/27/16) S/P colonoscopy (~08/22/18) Status post appendectomy Status post cholecystectomy Status post debridement of bone spur Tobacco Smoking/Tobacco Use Status: Former Tobacco Use Passive smoking exposure: Yes Second hand exposure: Yes Alcohol Alcohol Intake: current Alcohol intake frequency: holidays/special occasions only Alcohol type: beer Details: episodic beer socially Substance Use Substance use: Daily Substance use type: marijuana Counseling provided: none Vital Signs and Lab Results Lab Results Blood Type / Crossmatch: No Data to Display Complete Blood Count: No Data to Display Complete Metabolic Panel: No Data to Display Liver Function Panel: No Data to Display Coagulation Panel: No Data to Display Cardiac Panel: No Data to Display Arterial Blood Gas: No Data to Display Venous Blood Gas: No Data to Display Pancreas Panel: No Data to Display Thyroid Panel: No Data to Display Infectious Disease: No Data to Display Blood Cultures: No Data to Display Toxicology Panel: No Data to Display Imaging and Studies Imaging and Studies Study information below may be from another EMR and interpreted by another provider. Please see original notes in EMR for more complete details. Echocardiogram Summary: 2013: LVEF 65-70%, possible diastolic dysfunction, no sig valve issues. Anesthesia Assessment and Plan Anesthesia History Personal History: No History of Anesthesia Complications Family History: No Family History of Anesthesia Complications Exercise Tolerance Exercise Tolerance: Metabolic Equivalents>4 Cardiac & Pulmonary Exam Cardiac Exam: Normal S1/S2 Heart Sounds Pulmonary Exam: Clear Bilateral Breath Sounds Implantable Cardiac Device Does patient have a Pacemaker or an ICD?: No Airway Exam Known Difficult Airway: No Mallampati Class: 3 Mouth Opening: Narrow (< 3cm) Thyromental Distance: Less than 3 cm Neck Range of Motion: Full ROM Neck Circumference: Normal Teeth Condition: Normal Dentition ASA Classification ASA Score: ASA 3 Emergency Case?: No NPO Status NPO Status: NPO Clears >2 hours, Solids >8 hours Anesthesia Plan Resuscitation Status: Full Code Anesthesia Technique: General Anesthesia Airway Planned: Endotracheal Tube Monitors Used: Standard Monitors Preoperative Comments:: 67 yo female for colo. Sig PMHx: BMI 44/DM (semaglutide),HTN, OLIVE, fatty liver, hypothyroid, anxiety, DM, RLS, former soker, occ ETOH, daily cannabis. Previous Anes: - colo, prop, natural airway, no issues. - ECTR, prop, natural airway. - ectr, prop, LMA 4. stomach scanned with what appears to be fair amount of contents, discussed GA with ETT.
--- NOTE | 2023-03-21 20:29 | PDOC.DSDIS_ITS ---
Date of service: 03/22/23 Time of Service: 10:58 Discharge Plan Disposition Patient Disposition: Home Condition: Good Discharge Details Reason For Visit: Screening colonoscopy Attending Provider: Pb Paul Primary Care Provider: Bradley Morales Home Meds and New Rx's Prescriptions: Continued nystatin 100,000 unit/gram powder 1 applic topical TID Qty: 60 0RF Rx Instructions: Bilateral abdominal fold and groin (DME) FreeStyle Katya 14 Day [place] Misc See Rx Instructions .ROUTE .MEDSUPPLY Qty: 1 0RF Rx Instructions: As directed- E11.65 cyclobenzaprine 10 mg tablet 10 mg PO TID PRN (Reason: muscle spasm) Qty: 20 0RF Rx Instructions: May take 1 tab every 8 hours as needed for muscle spasm. No driving or drinking ETOH. magnesium chloride 64 mg tablet,delayed release (DR/EC) 64 mg PO BID Qty: 180 4RF diclofenac sodium 1 % gel See Rx Instructions .ROUTE .COMPLEX Qty: 100 3RF Dose Instruction: APPLY 2 GRAMS FOUR TIMES A DAY NEEDED FOR HAND PAIN FOR 12 DAYS Rx Instructions: APPLY 2 GRAMS FOUR TIMES A DAY NEEDED FOR HAND PAIN FOR 12 DAYS Ozempic 0.25 mg or 0.5 mg (2 mg/3 mL) pen injector 0.25 mg subcut QWEEK Qty: 3 0RF Rx Instructions: for 4 weeks (DME) FreeStyle Katya 14 Day Sensor Kit See Rx Instructions .ROUTE .MEDSUPPLY Qty: 6 4RF Rx Instructions: As directed-E11.65 diclofenac sodium 75 mg tablet,delayed release (DR/EC) 75 mg PO BID Qty: 180 4RF multivitamin [One Daily] 1 EACH tablet 1 ea PO DAILY aspirin 325 MG tablet 325 mg PO DAILY (DME) lancets [OneTouch Delica Lancets] 1 EACH misc 1 ea Intradermal BID Rx Instructions: DX:250.0 (DME) blood sugar diagnostic Strip 3 strip Miscellaneous DAILY Qty: 200 4RF Rx Instructions: DX:e11.9 - BID testing clotrimazole-betamethasone 1-0.05 % cream 1 applic topical BID 14 Days Qty: 45 2RF hydrochlorothiazide 12.5 mg tablet 12.5 mg PO DAILY Qty: 90 4RF lisinopril 40 mg tablet 40 mg PO DAILY Qty: 90 4RF simvastatin 40 mg tablet 40 mg PO DAILY Qty: 90 4RF insulin lispro [Humalog KwikPen Insulin] 100 unit/mL insulin pen 12 - 20 unit subcut AC Qty: 15 6RF levothyroxine 88 mcg tablet 88 mcg PO DAILY Qty: 90 3RF amitriptyline 10 mg tablet 5 - 10 mg PO HS Qty: 90 3RF gabapentin 600 mg tablet 600 mg PO BID Qty: 180 3RF metformin 500 mg tablet 500 mg PO BID Qty: 180 4RF insulin glargine [Lantus Solostar U-100 Insulin] 100 unit/mL (3 mL) insulin pen See Rx Instructions .ROUTE .COMPLEX Qty: 30 5RF Dose Instruction: INJECT 60 UNITS UNDER SKIN ONCE DAILY Rx Instructions: INJECT 60 UNITS UNDER SKIN ONCE DAILY (DME) pen needle, diabetic [Pen Needle] 31 gauge x 5/16 needle 1 ea Miscellaneous TID Qty: 300 4RF Rx Instructions: Dx 250.02 Discontinued bisacodyl [Dulcolax (bisacodyl)] 5 mg tablet,delayed release (DR/EC) 5 mg PO ONCE Qty: 4 0RF Rx Instructions: Take per colonoscopy instructions provided by ordering providers office polyethylene glycol 3350 17 gram/dose powder 17 g PO ONCE Qty: 238 0RF Rx Instructions: Take per colonoscopy instructions provided by ordering providers office Discharge Instructions Additional Instructions: Rajani, we were able to complete your colonoscopy today without any difficulty. I did not see any signs of tumors or polyps. Based on the results of today's colonoscopy, and the nature of your inflammatory polyp in the past, I recommend a follow-up colonoscopy in 10 years. 1. If tolerated, consume a soft, low fiber diet for 1-2 days. 2. Do not drive, drink alcohol, operate machinery, make critical decisions, or do activities that require coordination or balance for 24 hours. 3. Because air was put into your colon during the procedure, expelling air from your rectum (passing gas or farting) is normal. 4. You may not have a bowel movement for 1-3 days because of the colonoscopy prep. This is normal. 5. Go directly to the emergency room if you notice any of the following: Develop chills (warm to touch), or if you have a thermometer and your temperature is above 101 Difficulty breathing or difficultly swallowing Persistent vomiting Severe abdominal pain, other than gas cramps Severe chest pain Black, tarry stools Any bleeding ? exceeding one tablespoon 6. Call your physician if the site where your intravenous was started becomes red, swollen, painful, and warm to touch. 7. Your physician has reviewed your pre-procedure medications. Please continue to take those medications as previously ordered. You will be given specific information/education regarding any changes to your medications before leaving. Activity:: Activity as Tolerated Diet:: As Tolerated Discharge Orders Discharge Orders: Discharge Order (Routine); Ordered 03/21/23 Ordered By: Pb Paul DS: Diagnosis Discharge Diagnosis (1) Screening for colon cancer: Status: Acute Asessment and Plan: Negative screening colonoscopy
--- NOTE | 2023-03-21 20:33 | W.COLOREPORT ---
Date of service: 03/22/23 Time of Service: 11:01 Colonoscopy Report Date of procedure: 03/22/23 Pre-op diagnosis general: Screening colonoscopy Post-op diagnosis procedure note: other (Negative screening colonoscopy) Procedure: Colonoscopy Surgeon: Pb Paul Anesthesia Type: General:No Airway Estimated blood loss (mL): 0 Pathology: none sent Complications: None Disposition: same day Indications: Rajani is 67 years olf and she is due for a screening colonoscopy Prep: Miralax/Dulcolax Procedure Start Time: 10:28 Procedure End Time: 10:49 Retraction Time: 15 Findings: Negative screening colonoscopy Procedure Description: After the induction of monitored anesthetic care, and with the patient in left lateral decubitus position, I began by performing an external anorectal exam.? Perineum and skin were normal, as was the anal verge.? There was no evidence of external hemorrhoids.? Next, I performed a digital rectal exam.? I did not appreciate any abnormal findings.? Next, I advanced a colonoscope into the rectal vault.? I performed retroflexion.? I did not see signs of pathologic internal hemorrhoids.? Using insufflation, I then advanced the colonoscope beyond the rectal folds and into the sigmoid colon before advancing towards the cecum.? The quality of the prep was adequate.? The scope was noted to be in the cecum by identification of the ileocecal valve and appendiceal orifice.? I then began withdrawing the colonoscope using repeated irrigation as necessary for full evaluation of the colonic mucosa. ?Once the scope was withdrawn to the level of the rectum, great care was taken to examine portions of the rectal folds.? I did not see any evidence of tumors or polyps. Finally, the scope was withdrawn and the patient was brought to the same-day surgery recovery unit as the anesthetic wore off. ?The findings and instructions were shared with the patient prior to discharge.
[2023-03-22] VITALS (7 sets, daily range): BP systolic 104–136; BP diastolic 46–80; PULSE 82–96; RESP 14–17; TEMP 36.5–36.7; O2SAT 96–98; BMI 43.0
[2023-03-22] MEDS: Lactated Ringers 1,000 ML 80 ML IV (09:41)
--- NOTE | 2023-03-22 11:21 | W.ANESPOSTOP ---
Postoperative Evaluation Date, Time and Location Date Performed: 03/22/23 Time Performed: 11:21 Patient Location: PACU Vital Signs Most Recent Imported Vital Signs: Most Recent Vital Signs Temp Pulse Resp BP Pulse Ox 36.6 C 89 14 123/51 L 96 03/22/23 11:10 03/22/23 11:10 03/22/23 11:10 03/22/23 11:10 03/22/23 11:10 Pain Score Most Recent Pain Score: Most Recent Pain Score Pain Level 0 03/22/23 11:10 Assessment Mental Status: Awake (Alert & Oriented to Patient Baseline) Airway and Respiratory Function: Patent airway with normal (patient baseline) respiratory exam Cardiovascular Function: Hemodynamically Stable Hydration Status: Adequately Hydrated Nausea & Vomiting: No Nausea or Vomiting Pain: Pt. Denies Any Pain Peripheral Nerve Block: Patient did not receive a nerve block
== END 2023-03-22 12:47 | disposition home or self-care (01) ==
PROVIDERS: PCP Nurse Practitioner Family; Visit Provider Surgery
PROC: 0DJD8ZZ Inspection of Lower Intestinal Tract, Via Natural or Artificial Opening Endoscopic (ICD-10-PCS; CPT 45378; principal; 2023-03-22 10:30)
DX: Z12.11 Encounter for screening for malignant neoplasm of colon (principal)
CPT/HCPCS: G0121; J2001; J2704

== ENCOUNTER 2023-03-31 02:39 | Outpatient (CLI) | payer MEDICARE, BC, SELFPAY ==
[2023-03-31 12:34] LABS: Anion Gap 9.4 mmol/L (3-11); BUN 25 mg/dL (7-18); CO2 27.6 mmol/L (21.0-32.0); CREATININE 0.9 mg/dL (0.55-1.02); Calcium 8.9 mg/dL (8.5-10.1); Calculated LDL 95 mg/dL (<100); Chloride 103 mmol/L (98-107); Cholesterol 177 mg/dL (<200); Estimated GFR 70.51 (mL/min/1.73m2); Glucose 133 mg/dL (74-106); HDL Cholesterol 60 mg/dL (40-60); Potassium 3.9 mmol/L (3.5-5.1); Sodium 140 mmol/L (136-145); Triglyceride 114 mg/dL (<150)
== END 2023-03-31 02:40 | disposition home or self-care (01) ==
LOC: LBO 02:39
PROVIDERS: PCP Nurse Practitioner Family; Visit Provider Nurse Practitioner Family
DX: I10 Essential (primary) hypertension (principal); E78.5 Hyperlipidemia, unspecified
CPT/HCPCS: 36415; 80048; 80061

== ENCOUNTER → 2023-08-11 00:31 | Outpatient (CLI) | payer MEDICARE, BC, SELFPAY ==
--- NOTE | 2023-08-11 08:45 | DI.MAMMO_ITS ---
Exam(s) MAMMO SCREENING EXAM: MAMMO SCREENING CLINICAL HISTORY: screening,z12.39 TECHNIQUE: Bilateral full field digital CC and MLO mammographic images were obtained with 3D tomosyn thesis and utilizing computer aided detection (CAD). COMPARISON: Available for comparison. FINDINGS: Masses/Architectural Distortion: None seen. Microcalcifications: No suspicious pleomorphic-type are seen. Skin Thickening/Nipple Retraction: None. IMPRESSION: 1. No significant interval change with no specific features of malignancy noted. 2. Unless there is more urgent need, screening mammography is recommended, as per [employer] guidelines. BI-RADS Category 1 - Negative Breast Density - Category B - Scattered areas of fibroglandular density Breast density category C or D implies that the patient has dense breast tissue. Dense breast tissue is very common and is not abnormal but dense breast tissue can make it harder to find cancer on a ma mmogram. Also, dense breast tissue may increase their breast cancer risk. This information about the result of the mammogram report was provided to the patient to raise their awareness. Use this report when you speak with the patient about their risks for breast cancer, which includes their family hist ory. At that time, you may recommend for more screening tests (Ultrasound or MRI) as they might be us eful based on their risk. A negative radiographic report should not delay biopsy if a dominant or clinically suspicious mass is present. Up to ten percent of cancers are not identified on mammography. A negative report may reinforce clinical impression. Adenosis and dense breasts may obscure an underlying neoplasm. False positive reports average 6 to 10%. Patient will receive a letter notifying them of these results.
== END ==
PROVIDERS: PCP Nurse Practitioner Family; Visit Provider Nurse Practitioner Family
DX: Z12.31 Encounter for screening mammogram for malignant neoplasm of breast (principal); R92.323 Mammographic fibroglandular density, bilateral breasts
CPT/HCPCS: 77063; 77067

== ENCOUNTER 2023-09-09 12:17 | Outpatient (CLI) | payer MEDICARE, BC, SELFPAY ==
--- NOTE | 2023-09-09 06:00 | DI.RAD_ITS ---
Exam(s) XR PAIN CLINIC LUMBAR SP 2V EXAM: XR PAIN CLINIC LUMBAR SP 2V CLINICAL HISTORY: DX: Lumbar radiculopathy. TECHNIQUE: Fluoroscopy was provided for the referring physician for guidance with performing pain cl inic injection procedure. COMPARISON: No exams were available for comparison FINDINGS: Please see procedure note for details. Fluoro time: 18.6 seconds RADIATION DOSE DELIVERED: Ka,r=10.12 mGy
[2023-09-09 12:48] VITALS: BP 143/73; PULSE 80; RESP 20; TEMP 36.6; O2SAT 98
[2023-09-09 13:34] VITALS: BP 132/76; PULSE 86; RESP 13; O2SAT 97
[2023-09-09] MEDS: Omnipaque 240 MG/ML 50 ML BTL IJ (13:34)
[2023-09-09] MEDS: methylPREDNISolone ACETATE 80 MG/ML VIAL IJ (13:35)
--- NOTE | 2023-09-10 11:52 | PDOC.PAIN_ITS ---
Date of service: 09/09/23 Time of Service: 13:30 Pain Managment Procedure Note Procedure Note Procedure Note: PROCEDURE NOTE LUMBAR EPIDURAL STEROID INJECTION Date of Service: September 09, 2023 Patient:Rajani Kim? Provider: Zack Atkins DO, MPH Rajani Mendes has been referred to the [facility] for a lumbar epidural steroid injection. Pre-operative diagnosis: Lumbosacral Radiculopathy Post-operative diagnosis: Same Pre-Procedure Pain: VAS= 4 /10 Comments: She was previously evaluated in the office. Rajani was interviewed and the medical record was reviewed.? There were no medical, pharmacologic, radiographic or other structural contraindications to attempting fluoroscopically guided Lumbar epidural steroid injection.? Risks, potential side effects, indications, and potential benefits of the procedure were reviewed with Rajani.? Questions and concerns were addressed.? After it was clear that Rajani was fully informed about the procedure, the printed consent form was signed by the patient and myself.? Rajani was placed in the prone position on the fluoroscopy table and automated blood pressure cuff and pulse oximeter applied. The skin entry point for entering/approaching the epidural space for the lumbar epidural steroid inj ection was marked. Following thorough chlorhexadine preparation of the skin and draping and 1% lidocaine infiltration of the skin entry point and subcutaneous tissues, an 18 gauge Touhy needle was placed and advanced under fluoroscopic guidance and with loss of resistance technique into the L5-S1 epidural space. Needle tip placement and depth were aided and confirmed by fluoroscopy. There was no paresthesia or return of blood or CSF through the needle. 1 mls of Omnipaque 240 was injected with clear epidural spread confirmed with fluoroscopy. 80 mg of Depo-Medrol was? injected. This was followed by 1 ml of preservative-free normal saline to flush the steroid out of the needle. There was no unusual discomfort expressed by Rajani. The needle was withdrawn without difficulty. (49 mls of Omnipaque was wasted) Rajani was observed and was without hemodynamic, neurologic, or allergic reactions.? Fluoroscopic images were digitally archived. Rajani's vital signs were stable throughout the procedure and were as recorded in nursing records. Follow up plans and appointments were discussed with Rajani. Post procedure instruction was given as documented in nursing records and having met discharge criteria Rajani was discharged from the [facility]. COMMENTS: No apparent complications. Post-procedure pain: VAS= 0/10. Rajani to contact [facility] as needed. If at least 50% improvement in pain and/or function for at least 3 months is achieved, this procedure can be repeated. I personally performed this entire procedure. ZACK ATKINS DO, MPH ABPMR-subspecialty board certification in Pain Medicine [facility]
== END 2023-09-09 12:18 | disposition home or self-care (01) ==
LOC: PC 12:17
PROVIDERS: PCP Nurse Practitioner Family; Visit Provider Preventive Medicine Occupational Medicine
DX: M54.50 Low back pain, unspecified (principal); M54.17 Radiculopathy, lumbosacral region
CPT/HCPCS: 00123; 62323; 72100; J1040; Q9967

== ENCOUNTER 2024-02-24 10:50 | Outpatient (CLI) | payer MEDICARE, BC, SELFPAY ==
[2024-02-24 11:16] VITALS: BP 143/58; PULSE 81; RESP 20; TEMP 36.7; O2SAT 95
--- NOTE | 2024-02-24 12:01 | DI.RAD_ITS ---
Exam(s) XR PAIN CLINIC LUMBAR SP 2V EXAM: XR PAIN CLINIC LUMBAR SP 2V CLINICAL HISTORY: DX: Lumbar spondylosis. TECHNIQUE: Fluoroscopy was provided for the referring physician for guidance with performing pain cl inic injection procedure. COMPARISON: No exams were available for comparison FINDINGS: Please see procedure note for details. Fluoro time: 69.6 seconds RADIATION DOSE DELIVERED: Kar=33.2 mGy
[2024-02-24 12:05] VITALS: BP 139/82; PULSE 77; RESP 11; O2SAT 97
[2024-02-24] MEDS: Omnipaque 240 MG/ML 50 ML BTL IJ (12:07)
[2024-02-24] MEDS: Nerve Block Tray 1 EACH MC (12:07)
[2024-02-24] MEDS: Bupivacaine 0.5% Pres-Free 10 ML VIAL IJ (12:07)
--- NOTE | 2024-02-24 12:11 | PDOC.PAIN_ITS ---
Date of service: 02/24/24 Time of Service: 12:11 Pain Managment Procedure Note Procedure Note Procedure Note: PROCEDURE NOTE Bilateral Lumbar Medial Branch Blocks Date of Service: February 24, 2024 Patient: Rajani Mendes Provider: Zack Atkins DO, MPH Rajani Mendes has been referred to the [facility] for lumbar medial branch blocks. Pre-operative diagnosis: Lumbar Spondylosis without Myelopathy Post-operative diagnosis: Same Pre-procedure pain: VAS= /10 COMMENTS: I previously evaluated her in the office. Rajani? was interviewed and the medical records were reviewed. There were no medical, pharmacologic, radiographic or other structural contraindications to attempting fluoroscopically guided local anesthetic lumbar medial branch blocks. Risks and potential side effects were discussed. I also discussed the potential benefit(s) of the procedure with Rajani, and voiced concerns were addressed. After Rajani was completely informed about the procedure, the printed consent form was signed. A standard time-out procedure was performed. Rajani was placed in the prone position on the fluoroscopy table. Automated blood pressure cuff and pulse oximeter were applied. The skin entry points for approaching the anatomic target points of the segmental medial branches of bilateral L3,L4,L5 were identified with fluoroscopy and marked. The skin at the target site area was thoroughly prepared with Chlorhexadine. The skin was then draped. Next, a 25 gauge 3.5 spinal needle was placed under fluoroscopic guidance down on to the target point (the articular pillar) for each respective segmental medial branch. Position was confirmed in A/P and lateral views. Aspiration revealed no blood or clear fluid. Next, 0.25ml of omnipaque 240 was injected at each level. No contrast following a vascular or neural pattern was visualized under continuous fluoroscopy. Next, 0.25 ml of preservative-free 0.5% bupivicaine was injected at each level. There was no unusual discomfort expressed by Rajani. The needles were withdrawn without difficulty. (49 mls of Omnipaque was wasted) Rajani was observed and was without hemodynamic, neurologic, or allergic reactions.? Fluoroscopic images were digitally archived. Provacative testing using the Modified Robin's facet loading test- Left side Right Side Directly before the block VAS (0-10) = 8/10 VAS (0-10) = 8/10 Five minutes after the block VAS (0-10) = 0/10 VAS (0-10) = 0/10 Percentage relief obtained with this diagnostic block 100% 100% Any improved physical functioning directly after the blocks? Able to work with ease. Follow up plans and appointments were discussed with Rajani. Rajani was instructed to keep careful note of how the usual pain was modified by these injections. Specifically, to keep a pain diary for the next 4 hours using a numeric pain scale of 0-10 and report these results. Post procedure instruction was given as documented in the nursing documentation and having met discharge criteria, the patient was discharged from the [facility]. Based on the medial branches blocked today, if they patient has adequate relief and we are able to proceed to radiofrequency ablation, the treatment should result in the denervation of the bilateral L4-L5 and L5-S1 facet joints. We would expect to denervate a total of 4 facets during the radiofrequency ablation. COMMENTS: No apparent complications. Post-procedure pain: VAS= 0/10 Rajani will call back with 0-4 hour post-procedure pain scores. I personally performed the entire procedure. ZACK ATKINS DO, MPH ABPM&R-subspecialty board certification in Pain Medicine [facility]
== END 2024-02-24 10:51 | disposition home or self-care (01) ==
LOC: PC 10:50
PROVIDERS: PCP Nurse Practitioner Family; Visit Provider Preventive Medicine Occupational Medicine
DX: M47.816 Spondylosis without myelopathy or radiculopathy, lumbar region (principal); M54.50 Low back pain, unspecified
CPT/HCPCS: 64493; 64494; 72100; J0665; Q9967

== ENCOUNTER 2024-04-05 09:48 | Outpatient (CLI) | payer MEDICARE, BC, SELFPAY ==
--- NOTE | 2024-04-05 06:00 | DI.RAD_ITS ---
Exam(s) XR PAIN CLINIC LUMBAR SP 2V EXAM: XR PAIN CLINIC LUMBAR SP 2V CLINICAL HISTORY: Dx: Lumbar Spondylosis TECHNIQUE: 2D and realtime digital imaging was performed. CONTRAST MATERIAL: Refer to procedure report. COMPARISON: No exams were available for comparison FINDINGS: Fluoroscopy was provided for Dr. Atkins during the performance of a lumbar medial branch block. Kianna parker refer to the procedure report for complete details. Ka,r=32 mGy IMPRESSION: RADIATION DOSE DELIVERED: 0.0 0.0 0
[2024-04-05 10:15] VITALS: BP 128/51; PULSE 85; RESP 20; TEMP 36.6; O2SAT 99
[2024-04-05 10:26] VITALS: PULSE 78; O2SAT 99
[2024-04-05 10:40] VITALS: PULSE 76; RESP 11; O2SAT 95
[2024-04-05 10:42] VITALS: BP 136/74; PULSE 79; RESP 9; O2SAT 96
[2024-04-05] MEDS: Nerve Block Tray 1 EACH MC (10:48)
[2024-04-05] MEDS: Omnipaque 240 MG/ML 50 ML BTL IJ (10:48)
[2024-04-05] MEDS: Bupivacaine 0.5% Pres-Free 10 ML VIAL IJ (10:48)
--- NOTE | 2024-04-05 10:56 | PDOC.PAIN ---
Date of service: 04/05/24 Time of Service: 10:56 Pain Managment Procedure Note Procedure Note Procedure Note: PROCEDURE NOTE Bilateral Lumbar Medial Branch Blocks Date of Service: April 05, 2024 Patient: Rajani Mendes Provider: Zack Atkins DO, MPH Rajani Mendes has been referred to the [facility] for lumbar medial branch blocks. Pre-operative diagnosis: Lumbar Spondylosis without Myelopathy Post-operative diagnosis: Same Pre-procedure pain: VAS= 7/10 COMMENTS: She had her first LMBB on 02/26/24. She did well with this procedure. Her pain has returned. Johnny was interviewed and the medical records were reviewed. There were no medical, pharmacologic, radiographic or other structural contraindications to attempting fluoroscopically guided local anesthetic lumbar medial branch blocks. Risks and potential side effects were discussed. I also discussed the potential benefit(s) of the procedure with Rajani, and voiced concerns were addressed. After Rajani was completely informed about the procedure, the printed consent form was signed. A standard time-out procedure was performed. Rajani was placed in the prone position on the fluoroscopy table. Automated blood pressure cuff and pulse oximeter were applied. The skin entry points for approaching the anatomic target points of the segmental medial branches of bilateral L3,L4,L5 were identified with fluoroscopy and marked. The skin at the target site area was thoroughly prepared with Chlorhexadine. The skin was then draped. Next, a 25 gauge 3.5 spinal needle was placed under fluoroscopic guidance down on to the target point (the articular pillar) for each respective segmental medial branch. Position was confirmed in A/P and lateral views. Aspiration revealed no blood or clear fluid. Next, 0.25ml of omnipaque 240 was injected at each level. No contrast following a vascular or neural pattern was visualized under continuous fluoroscopy. Next, 0.25 ml of preservative-free 0.5% bupivicaine was injected at each level. There was no unusual discomfort expressed by Rajani. The needles were withdrawn without difficulty. (49 mls of Omnipaque was wasted) Rajani was observed and was without hemodynamic, neurologic, or allergic reactions.? Fluoroscopic images were digitally archived. Provacative testing using the Modified Robin's facet loading test- Left side Right Side Directly before the block VAS (0-10) = 7/10 VAS (0-10) = 7/10 Five minutes after the block VAS (0-10) = 3/10 VAS (0-10) = 3/10 Percentage relief obtained with this diagnostic block 80% 80% Any improved physical functioning directly after the blocks? Able to move around better. Her right lateral thigh is still hurting. I let her know that this was likely coming from another location. Follow up plans and appointments were discussed with Rajani. Rajani was instructed to keep careful note of how the usual pain was modified by these injections. Specifically, to keep a pain diary for the next 4 hours using a numeric pain scale of 0-10 and report these results. Post procedure instruction was given as documented in the nursing documentation and having met discharge criteria, the patient was discharged from the [facility]. Based on the medial branches blocked today, if they patient has adequate relief and we are able to proceed to radiofrequency ablation, the treatment should result in the denervation of the bilateral L4-L5 and L5-S1 facet joints. We would expect to denervate a total of 4 facets during the radiofrequency ablation. COMMENTS: No apparent complications. Post-procedure pain: VAS= 3/10 Rajani will call back with 0-4 hour post-procedure pain scores. I personally performed the entire procedure. ZACK ATKINS DO, MPH ABPM&R-subspecialty board certification in Pain Medicine [facility]
== END 2024-04-05 09:49 | disposition home or self-care (01) ==
LOC: PC 09:49
PROVIDERS: PCP Nurse Practitioner Family; Visit Provider Preventive Medicine Occupational Medicine
DX: M54.50 Low back pain, unspecified (principal); M47.816 Spondylosis without myelopathy or radiculopathy, lumbar region
CPT/HCPCS: 64493; 64494; 72100; J0665; Q9967

== ENCOUNTER 2024-04-26 07:49 | Outpatient (CLI) | payer MEDICARE, BC, SELFPAY ==
[2024-04-26] VITALS (15 sets, daily range): BP systolic 106–140; BP diastolic 58–91; PULSE 64–84; RESP 4–20; TEMP 36.6; O2SAT 91–98
[2024-04-26] MEDS: fentaNYL 100 MCG/2 ML VIAL IVP ×2 (09:05→09:27)
[2024-04-26] MEDS: Midazolam 2 MG/2 ML VIAL IVP (09:05)
[2024-04-26] MEDS: Lactated Ringers 500 ML 80 ML IV (09:11)
--- NOTE | 2024-04-26 09:40 | DI.RAD_ITS ---
Exam(s) XR PAIN CLINIC LUMBAR SP 2V EXAM: XR PAIN CLINIC LUMBAR SP 2V CLINICAL HISTORY: Lumbar Spondylosis TECHNIQUE: 2D and realtime digital imaging was performed. CONTRAST MATERIAL: Refer to procedure report. COMPARISON: No exams were available for comparison FINDINGS: Fluoroscopy was provided for Dr. Atkins during the performance of a lumbar radiofrequency ablation. P lease refer to the procedure report for complete details. Ka,r=41.5 mGy IMPRESSION: RADIATION DOSE DELIVERED: 0.0 0.0 0
[2024-04-26] MEDS: Lidocaine 2% Pres-Free 5 ML VIAL IJ (09:47)
[2024-04-26] MEDS: Bupivacaine 0.5% Pres-Free 10 ML VIAL IJ (09:47)
[2024-04-26] MEDS: methylPREDNISolone ACETATE 40 MG/ML VIAL IJ (09:48)
[2024-04-26] MEDS: Nerve Block Tray 1 EACH MC (09:49)
--- NOTE | 2024-04-27 08:45 | PDOC.PAIN_ITS ---
Date of service: 04/27/24 Time of Service: 09:30 Pain Managment Procedure Note Procedure Note Procedure Note: PROCEDURE NOTE BILATERAL LUMBAR RADIOFREQUENCY ABLATION Date of Service: April 26, 2024 Patient:? Rajani Mendes? Provider:? Zack Paulino DO, MPH Rajani Mendes [facility] Bilateral Lumbar Radiofrequency Ablation with the [employer].? 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 Rajani?was interviewed and the medical record was reviewed.? There were no medical, pharmacologic, radiographic or other structural contraindications to attempting fluoroscopically guided BILATERAL Lumbar Radiofrequency Ablation.?Risks and expected side effects as well as potential benefit of the procedure were reviewed with Rajani, and the patient's voiced concerns were addressed.? The printed consent form was signed.? Standard time-out procedure was performed. Rajani was brought into the fluoroscopy suite and positioned into the prone position on the fluoroscopy table and allowed to adjust to a position of comfort. A grounding pad was placed on the left abdomen. The sterile field was prepared using chlorhexidine preparation of the skin and sterile draping. Local anesthesia superficial and deep was provided by local infiltration of 2% lidocaine. A 17g 100 mm radiofrequency introducer needle was placed to the planned anatomic targets guided with intermittent fluoroscopy with a perpendicular approach to terminally place at the junction of the superior articular process and the transverse process of the bilateral L4, L5, the base of the sacral ala on the bilateral for the L5 medial branch nerve and the area between base of the sacral ala to the S1 foramen bilaterally. The stylets were removed and radiofrequency probes with a 4mm active tip were then inserted. Needle tip position of the probes was verified in the AP, oblique, and lateral views. At each site, the medial branch nerve was stimulated at 2 Hz to a maximum 1-2 volts determined to finalize safe needle and electrode placement. The patient was awake and responsive during this portion of the procedure. Each target was anesthetized with 1-2 mL of 2 % Lidocaine for anesthesia for lesioning and then each target was lesioned at 80 degrees Celsius for 2 minutes and 30 seconds. Tissue impedances were noted to be between 250 and 500 Ohms. There was no unusual discomfort expressed by Rajani. The needles were withdrawn without difficulty and bandages placed over the needle placement sites, the patient was observed and was without hemodynamic, neurologic, or allergic reactions. Fluoroscopic images were digitally archived. POST PROCEDURE EVALUATION: IMPRESSION: 1. Summary of procedure. Medication given is documented in the MAR. 2. Follow up plan: Rajani to contact [facility] as needed.?This procedure may be repeated if the patient achieves at least 50% improvement in pain/function for at least 6 months. 3. Estimated Blood Loss: <5 mls 4. Fluoroscopy time: Documented in the EMR. Follow up plans and appointments were discussed with the Rajani. Post procedure instruction was given as documented in nursing documentation and having met discharge criteria, Rjaani was discharged from the [facility]. COMMENTS: No apparent complications. Post-procedure pain: VAS= 0/10. I personally completed the entire procedure. ZACK PAULINO DO, MPH ABPM[employer] - Subspecialty board certification in Pain Medicine [facility]
== END 2024-04-26 07:50 | disposition home or self-care (01) ==
LOC: PC 07:50
PROVIDERS: PCP Nurse Practitioner Family; Visit Provider Preventive Medicine Occupational Medicine
DX: M54.50 Low back pain, unspecified (principal); M47.817 Spondylosis without myelopathy or radiculopathy, lumbosacral region
CPT/HCPCS: 64635; 64636; 72100; J0665; J1010; J2250; J3010

== ENCOUNTER 2024-06-19 20:19 | Outpatient (REF) | payer MEDICARE, BC, SELFPAY ==
[2024-06-19 21:35] LABS: HCT 40.1 % (36.0-46.0); HGB 13.3 g/dL (11.2-15.7); MCH 29.2 pg (27.0-33.0); MCHC 33.2 % (32.0-36.0); MCV 88 fL (80-95); MPV 9.9 fL (8.0-11.0); Platelet Count 289 10^3/uL (130-400); RBC 4.55 10^6/uL (3.93-5.22); RDW-SD 41.7 fL; WBC 8.35 10^3/uL (4.4-10.8)
[2024-06-19 21:55] LABS: ALT 37 U/L (14-59); AST 19 U/L (15-37); Albumin 3.5 g/dL (3.4-5.0); Alkaline Phosphatase 49 U/L (46-116); Anion Gap 10.9 mmol/L (3-11); BUN 34 mg/dL (7-18); Bilirubin, Total 0.41 mg/dL (0.2-1.0); CO2 24.1 mmol/L (21.0-32.0); CREATININE 0.9 mg/dL (0.55-1.02); Calcium 9.1 mg/dL (8.5-10.1); Calculated LDL 99 mg/dL (<100); Chloride 96 mmol/L (98-107); Cholesterol 187 mg/dL (<200); Estimated GFR 70.07 (mL/min/1.73m2); Glucose 102 mg/dL (74-106); HDL Cholesterol 55 mg/dL (40-60); Potassium 4.1 mmol/L (3.5-5.1); Sodium 131 mmol/L (136-145); Total Protein 6.2 g/dL (6.4-8.2); Triglyceride 166 mg/dL (<150)
[2024-06-21 09:36] LABS: Hepatitis C Ab w Rflx HCV PCR Negative (Negative)
[2024-06-21 10:04] LABS: HIV-1/2 Ag & Ab Screen Negative (Negative)
== END 2024-06-19 20:20 | disposition home or self-care (01) ==
LOC: LBN 20:19
PROVIDERS: PCP Nurse Practitioner Family; Visit Provider Nurse Practitioner Family
DX: Z11.4 Encounter for screening for human immunodeficiency virus [HIV]; R53.83 Other fatigue; Z11.59 Encounter for screening for other viral diseases; E03.9 Hypothyroidism, unspecified; E78.5 Hyperlipidemia, unspecified; Z12.39 Encounter for other screening for malignant neoplasm of breast; E11.65 Type 2 diabetes mellitus with hyperglycemia
CPT/HCPCS: 80053; 80061; 85027; 86803; 87389; 84443

== ENCOUNTER 2024-07-10 01:07 | Outpatient (CLI) | payer MEDICARE, BC, SELFPAY ==
--- NOTE | 2024-07-10 07:30 | DI.DEXA_ITS ---
Exam(s) XR DEXA BONE DENSITY W/WO HANG EXAM: XR DEXA BONE DENSITY W/WO HANG CLINICAL HISTORY: screening for osteoporosis in postmenopausal state,z78.0 TECHNIQUE: Holo[employer] Horizon C densitometer analysis of left hip, lumbar spine and left forearm. Lat eral survey image of the thoracic and lumbar spine. COMPARISON: No exams were available for comparison FINDINGS: Lateral view of the thoracic and lumbar spine shows no evidence of compression fractures. Bone mineral density measurements of the lumbar spine correspond to a total T-score of 2.6, in the n ormal range. Bone mineral density measurements of the left hip correspond to a total T-score of 0.2. The femoral neck T-score is -0.8, in the normal range.. Theleft forearm bone mineral density measurements correspond to a T-score of the distal 3rd of 1.0, in the normal range.. IMPRESSION: Normal bone mineral density.
== END 2024-07-10 01:27 ==
LOC: DI 01:07
PROVIDERS: PCP Nurse Practitioner Family; Visit Provider Nurse Practitioner Family
DX: Z78.0 Asymptomatic menopausal state (principal); Z13.820 Encounter for screening for osteoporosis
CPT/HCPCS: 77080

== ENCOUNTER 2024-08-21 01:11 | Outpatient (CLI) | payer MEDICARE, BC, SELFPAY ==
--- NOTE | 2024-08-21 07:14 | DI.MAMMO_ITS ---
Exam(s) MAMMO SCREENING EXAM: MAMMO SCREENING CLINICAL HISTORY: screening,Z12.39. TECHNIQUE: Bilateral full field digital CC and MLO mammographic images were obtained with 3D tomosyn thesis and utilizing computer aided detection (CAD). COMPARISON: Prior mammograms were reviewed. FINDINGS: There has been no significant change in the appearance and distribution of the fibroglandular tissue. There are no CAD designations. There are no new spiculated masses nor malignant appearing microcalcification groups. There is no significant architectural distortion nor skin thickening-retraction. IMPRESSION: No radiographic evidence of malignancy. BI-RADS Category 1 - Negative Breast Density - Category B - Scattered areas of fibroglandular density Breast density Category C or D implies that the patient has dense breast tissue. Dense breast tissue can make it harder to find cancer on a mammogram. Dense breast tissue is also associated with an incr eased risk of breast cancer. This information about the result of the mammogram report was provided to the patient to raise their awareness. Use this report when you speak with the patient about their risks for breast cancer, which includes their family history. At that time, you may recommend additional screening tests (Ultrasoun d or MRI) as these tests may add significant information. A negative radiographic report should not delay biopsy if a dominant or clinically suspicious mass is present. Up to ten percent of cancers are not identified on mammography. A negative report may reinforce clinical impression. Adenosis and dense breasts may obscure an underlying neoplasm. False positive reports average 6 to 10%. Patient will receive a letter notifying them of these results.
== END 2024-08-21 01:31 ==
LOC: DI 01:11
PROVIDERS: PCP Nurse Practitioner Family; Visit Provider Nurse Practitioner Family
DX: Z12.31 Encounter for screening mammogram for malignant neoplasm of breast (principal); R92.323 Mammographic fibroglandular density, bilateral breasts
CPT/HCPCS: 77063; 77067

== ENCOUNTER 2025-06-22 15:13 | Outpatient (CLI) | payer MEDICARE, BC, SELFPAY ==
[2025-06-22 15:47] LABS: HCT 41.3 % (36.0-46.0); HGB 14.0 g/dL (11.2-15.7); MCH 29.7 pg (27.0-33.0); MCHC 33.9 % (32.0-36.0); MCV 88 fL (80-95); MPV 9.7 fL (8.0-11.0); Platelet Count 294 10^3/uL (130-400); RBC 4.72 10^6/uL (3.93-5.22); RDW 12.9 % (11.7-14.6); RDW-SD 41.8 fL; WBC 7.93 10^3/uL (4.4-10.8)
[2025-06-22 16:05] LABS: ALT 39 U/L (14-59); AST 31 U/L (15-37); Albumin 3.9 g/dL (3.4-5.0); Alkaline Phosphatase 49 U/L (46-116); Anion Gap 11.6 mmol/L (3-11); BUN 27 mg/dL (7-18); Bilirubin, Total 0.5 mg/dL (0.2-1.0); CO2 27.4 mmol/L (21.0-32.0); Calcium 9.2 mg/dL (8.5-10.1); Calculated LDL 104 mg/dL (<100); Chloride 104 mmol/L (98-107); Cholesterol 194 mg/dL (<200); Estimated GFR 94.15 (mL/min/1.73m2); Glucose 110 mg/dL (74-106); HDL Cholesterol 55 mg/dL (>or=50); Potassium 3.9 mmol/L (3.5-5.1); Sodium 143 mmol/L (136-145); TSH (W/Ref FT4) 2.17 uIU/mL (0.36-3.74); Total Protein 6.7 g/dL (6.4-8.2); Triglyceride 176 mg/dL (<150)
[2025-06-25 18:05] LABS: HBs Antibody, Quant <3.1 mIU/mL (See Note); Hepatitis B Surface Antigen Negative (Negative)
== END 2025-06-22 15:14 | disposition home or self-care (01) ==
LOC: LOS 15:13
PROVIDERS: PCP Nurse Practitioner Family; Referring Provider Nurse Practitioner Family; Visit Provider Nurse Practitioner Family
DX: Z11.59 Encounter for screening for other viral diseases (principal); E78.5 Hyperlipidemia, unspecified; E03.9 Hypothyroidism, unspecified; R53.83 Other fatigue
CPT/HCPCS: 36415; 80053; 80061; 85027; 86704; 86706; 87340; 84443

== ENCOUNTER → 2025-09-20 00:32 | Outpatient (CLI) | payer MEDICARE, BC, SELFPAY ==
--- NOTE | 2025-09-20 09:00 | DI.MAMMO_ITS ---
Exam(s) MAMMO SCREENING EXAM: MAMMO SCREENING CLINICAL HISTORY: screening,z12.39 TECHNIQUE: Bilateral full field digital CC and MLO mammographic images were obtained with 3D tomosynthesis and utilizing computer aided detection (CAD). COMPARISON: Comparison is made with prior examinations. FINDINGS: Masses/Architectural Distortion: No suspicious masses or areas of architectural distortion are present. Microcalcifications: No suspicious pleomorphic-type are seen. Skin Thickening/Nipple Retraction: None. IMPRESSION: 1. No significant interval change with no specific features of malignancy noted. 2. Unless there is more urgent need, screening mammography is recommended, as per [place] [employer] guidelines. BI-RADS Category 1 - Negative Breast Density - Category B - There are scattered areas of fibroglandular density. Breast density Category C or D implies that the patient has dense breast tissue. Dense breast tissue can make it harder to find cancer on a mammogram. Dense breast tissue is also associated with an increased risk of breast cancer. This information about the result of the mammogram report was provided to the patient to raise their awareness. Use this report when you speak with the patient about their risks for breast cancer, which includes their family history. At that time, you may recommend additional screening tests (Ultrasound or MRI) as these tests may add significant information. A negative radiographic report should not delay biopsy if a dominant or clinically suspicious mass is present. Up to ten percent of cancers are not identified on mammography. A negative report may reinforce clinical impression. Adenosis and dense breasts may obscure an underlying neoplasm. False positive reports average 6 to 10%. Patient will receive a letter notifying them of these results.
== END ==
LOC: DI 00:32
PROVIDERS: PCP Nurse Practitioner Family; Visit Provider Nurse Practitioner Family
DX: Z12.31 Encounter for screening mammogram for malignant neoplasm of breast (principal)
CPT/HCPCS: 77063; 77067